=== PATIENT | male | born 1955 | race Caucasian/White ===

== ENCOUNTER → 2017-03-15 | Outpatient (CLI) | payer BC, OTHER ==
[~2017-03-15] MED LIST: ADVIL200 MG PO; B-12 5,000 MCG1 EACH; DICYCLOMINE HCL20 MG PO; FERROUS SULFAT325 M1 PO; GLIMEPIRIDE2 MG PO; HYDROCODON-ACE1 EAC9 PO; LORTAB 7.5-5001 EACH PO; LYRICA75 MG PO; METFORMIN HCL500 MG PO; MORPHINE SULFAT30 M2 PO; NORCO 7.5-3251 EACH PO; OMEPRAZOLE MAGN20 MG PO; OMEPRAZOLE20 M1 PO; OXYCODONE-ACET1 EAC3; SOMA350 MG PO
--- NOTE | 2017-03-15 16:42 | Diagnostic Imaging Report ---
PROCEDURE:X-RAY ABDOMEN - KUB COMPARISON:[facility], DX, ABDOMEN-1VIEW (KUB), 12/05/2016, 10:13. INDICATIONS:CALCULI OF KIDNEY FINDINGS: There is a non-obstructed bowel-gas pattern. Cholecystectomy clips. Levoscoliosis and degenerative changes of the lumbar spine. Fusion of L3-L5 with transpedicular screw system. Punctate calcific densities projected over the renal shadows bilaterally not significantly changed, albeit less conspicuous than on prior examination due to overlying bowel contents on today's exam. CONCLUSION: No significant change in bilateral punctate renal calculi. Abelardo Piper M.D. Dictated by: Abelardo Piper M.D. on 03/15/2017 at 16:51 Electronically approved by: Abelardo Piper M.D. on 03/15/2017 at 16:51
== END ==
LOC: RAD 13:28
PROVIDERS: ATTEND Urology
DX: N20.0 Calculus of kidney (principal)
CPT/HCPCS: 74000

== ENCOUNTER → 2017-06-05 | Outpatient (CLI) | payer BC, OTHER ==
--- NOTE | 2017-06-05 16:07 | Diagnostic Imaging Report ---
PROCEDURE:X-RAY ABDOMEN - KUB COMPARISON:03/15/2017 INDICATIONS:CALCULUS OF KIDNEY FINDINGS: One view of the abdomen (AP supine) No dilated loops of bowel or abnormal air-fluid levels patterns. Small calcifications projected over both kidneys, measuring up to 3 mm, overall unchanged. Cholecystectomy clips. Levoscoliosis and degenerative changes lumbar spine. Fusion of L3-L5 with transpedicular screws and disc spacers. CONCLUSION: 1. Nonobstructive bowel gas pattern. 2. Bilateral small renal calculi, unchanged since the prior study. Dictated by: Mauro iRchard M.D. on 06/05/2017 at 16:08 Electronically approved by: Mauro Richard M.D. on 06/05/2017 at 16:08
== END ==
LOC: RAD 15:13
PROVIDERS: ATTEND Urology
DX: N20.0 Calculus of kidney (principal)
CPT/HCPCS: 74018

== ENCOUNTER 2018-04-30 05:10 | Inpatient (IN) | payer BC, OTHER ==
[2018-04-26 13:20] LABS: BASOPHILS # (AUTO) 0.1 (0.0-0.1); BASOPHILS % 0.7 % (0.0-1.0); EOSINOPHILS # (AUTO) 0.2 (0.0-0.4); EOSINOPHILS % 2.5 % (0.0-6.0); HEMATOCRIT 38.7 % (38.2-49.6); HEMOGLOBIN 12.6 g/dL (14.0-18.0); LYMPHOCYTES # (AUTO) 1.7 (1.0-3.2); LYMPHOCYTES % 20.5 % (18.0-39.1); MEAN CORPUSCULAR HEMOGLOBIN 30.1 pg (28-32); MEAN CORPUSCULAR HGB CONC 32.6 g/dL (31-35); MEAN CORPUSCULAR VOLUME 92.4 fL (81-99); MONOCYTES # (AUTO) 0.6 (0.2-0.8); MONOCYTES % 7.6 % (4.4-11.3); NEUTROPHILS # (AUTO) 5.5 (2.1-6.9); NEUTROPHILS % 68.3 % (38.7-80.0); PLATELET COUNT 276 x10e3/uL (140-360); RED BLOOD COUNT 4.19 x10e6/uL (4.3-5.7)
[2018-04-26 13:36] LABS: ANION GAP 12.7 mmol/L (8-16); BLOOD UREA NITROGEN 8 mg/dL (7-26); BUN/CREATININE RATIO 7 (6-25); CALCIUM 9.5 mg/dL (8.4-10.2); CARBON DIOXIDE 19 mmol/L (22-29); CHLORIDE 111 mmol/L (98-107); CREATININE, SERUM 1.15 mg/dL (0.72-1.25); EST GLOMERULAR FILTRATION RATE > 60 ML/MIN (60-); GLUCOSE 120 mg/dL (74-118); POTASSIUM 3.7 mmol/L (3.5-5.1); SODIUM 139 mmol/L (136-145)
[2018-04-26 13:41] LABS: INR 0.92; PARTIAL THROMBOPLASTIN TIME 36.5 seconds (23.8-35.5); PROTHROMBIN TIME 12.9 seconds (11.9-14.5)
--- NOTE | 2018-04-26 13:54 | Diagnostic Imaging Report ---
Chest radiograph - 1 view COMPARISON: None. INDICATION: Pre admit. DISCUSSION: Exam is limited by patient obliquity and scoliosis. Lines/tubes: None. Lungs: The lungs are well inflated and clear. There is no evidence of pneumonia or pulmonary edema. Pleura: There is no pleural effusion or pneumothorax. Heart and mediastinum: Cardiomediastinal silhouette is unremarkable. Bones and soft tissues: No acute osseous abnormality. Severe levoconvex scoliosis at the thoracolumbar junction. There are partially seen lumbar spine fixation hardware. There are surgical clips which project over the upper abdomen. IMPRESSION: No acute radiographic abnormality. Signed by: Dr. Ava Leong MD on 04/26/2018 1:51 PM
[~2018-04-30] VITALS: Ht 167.6 cm; Wt 71.2 kg
[2018-04-30] VITALS (16 sets, daily range): BP systolic 87–127; BP diastolic 44–61
[~2018-04-30 05:10] MED LIST changes: +COQ-10100 MG; +CREON DR 24,001 EACH; +CRESTOR10 MG; +LISINOPRIL2.5 MG PO; +VITAMIN D250000 UNIT
--- OUTSIDE RECORDS SUMMARY | 2018-04-30 05:14 | XMS REPORT | Clinical Summary ---
Author Author [facility] Organization [facility] [facility] Address Unknown Phone Unavailable Care Team Providers Care Congressional Representative Name Role Phone System, Provider Not In MD PCP Unavailable Allergies No Known Allergies Medications End Date Status Medication Sig Dispensed Refills Start Date Active riFAMpin (RIFADIN) 300 MG Take 300 mg 0 capsule by mouth daily. Active tamsulosin (FLOMAX) 0.4 Take 0.4 mg 0 mg capsule by mouth daily. Active rosuvastatin (CRESTOR) 40 Take 40 mg by 0 MG tablet mouth daily. Active lisinopril Take 2.5 mg 0 (PRINIVIL,ZESTRIL) 2.5 mg by mouth tablet daily. Active linagliptin (TRADJENTA) 5 Take 5 mg by 0 mg tablet mouth daily. Active metFORMIN (GLUCOPHAGE) Take 1,000 mg 0 1,000 mg tablet by mouth 2 (two) times a day with meals. Active morPHINE (MS CONTIN) 100 Take 100 mg 0 MG 12 hr tablet by mouth 2 (two) times a day. Active ergocalciferol (VITAMIN Take 50,000 0 D2) 50,000 unit capsule Units by mouth once a week. 02/11/2018 Discontinued fenoprofen 400 mg capsule Take 400 mg 0 by mouth 2 (two) times a day. 02/11/2018 Discontinued HYDROcodone-acetaminophen Take 1 tablet 0 (NORCO) 10-325 mg per by mouth tablet every 6 (six) hours as needed for moderate pain. 02/11/2018 Discontinued glimepiride (AMARYL) 1 MG Take 1 mg by 0 tablet mouth daily before breakfast. 02/18/2018 levoFLOXacin (LEVAQUIN) Take 1 tablet 7 tablet 0 750 MG tablet (750 mg 8 total) by mouth daily for 7 days. Active Problems No known active problems Resolved Problems Problem Noted Date Resolved Date Altered mental status 02/09/2018 02/11/2018 Encounters Care Team Description Date Type Specialty Isaac Hernandez MD Li, MD Gordon Smith Tanseem Hamad Mohamed A, MD Altered mental status, unspecified altered mental status type (Primary Dx); Febrile illness; Pneumonia of right middle lobe due to infectious organism (HCC) 02/09/2018 [facility] General Internal Medicine - Encounter 02/11/2018 02/09/2018 Travel after 04/29/2017 Social History Date Tobacco Use Types Packs/Day Years Used Current Every Day Smoker Cigarettes 1.5 Smokeless Tobacco: Never Used Alcohol Use Drinks/Week oz/Week Comments No Alcohol Habits Answer Date Recorded How often do you have a drink containing alcohol? Never 02/09/2018 How many drinks containing alcohol do you have on Not asked a typical day when you are drinking? How often do you have six or more drinks on one Not asked occasion? Sex Assigned at Date Recorded Not on file Industry Job Start Date Occupation Not on file Not on file Not on file Travel End Travel History Travel Start No recent travel history available. Last Filed Vital Signs Time Taken Vital Sign Reading 02/11/2018 10:53 AM PUMPING STATION ENGINEER Blood Pressure 149/66 02/11/2018 10:53 AM PUMPING STATION ENGINEER Pulse 54 02/11/2018 10:53 AM PUMPING STATION ENGINEER Temperature 36.4 C (97.5 F) 02/11/2018 10:53 AM PUMPING STATION ENGINEER Respiratory Rate 20 02/11/2018 10:53 AM PUMPING STATION ENGINEER Oxygen Saturation 97% - Inhaled Oxygen - Concentration 02/11/2018 6:00 AM PUMPING STATION ENGINEER Weight 69.4 kg (153 lb) 02/09/2018 10:23 AM PUMPING STATION ENGINEER Height 172.7 cm (5' 8") 02/11/2018 6:00 AM PUMPING STATION ENGINEER Body Mass Index 23.26 Plan of Treatment Health Maintenance Due Date Last Done Comments COLON CANCER SCREENING 2004 SHINGLES VACCINES (#1) 2004 INFLUENZA VACCINE 09/19/2017 Procedures Comments Procedure Name Priority Date/Time Associated Diagnosis POTASSIUM LEVEL Routine 02/11/2018 11:18 AM PUMPING STATION ENGINEER POC GLUCOSE Routine 02/11/2018 10:53 AM PUMPING STATION ENGINEER POC GLUCOSE Routine 02/11/2018 6:41 AM PUMPING STATION ENGINEER HEMOGLOBIN A1C Routine 02/11/2018 5:06 AM PUMPING STATION ENGINEER ESTIMATED GFR Routine 02/11/2018 5:06 AM PUMPING STATION ENGINEER BASIC METABOLIC PANEL Routine 02/11/2018 5:06 AM PUMPING STATION ENGINEER HC COMPLETE BLD COUNT Routine 02/11/2018 W/AUTO DIFF 5:06 AM PUMPING STATION ENGINEER LEGIONELLA URINARY Routine 02/10/2018 ANTIGEN 11:52 PM PUMPING STATION ENGINEER STREPTOCOCCUS PNEUMONIAE Routine 02/10/2018 URINARY ANTIGEN 11:52 PM PUMPING STATION ENGINEER POC GLUCOSE Routine 02/10/2018 8:57 PM PUMPING STATION ENGINEER POC GLUCOSE Routine 02/10/2018 3:42 PM PUMPING STATION ENGINEER POC GLUCOSE Routine 02/10/2018 11:06 AM PUMPING STATION ENGINEER POC GLUCOSE Routine 02/10/2018 6:40 AM PUMPING STATION ENGINEER ESTIMATED GFR Routine 02/10/2018 5:38 AM PUMPING STATION ENGINEER HC COMPLETE BLD COUNT Routine 02/10/2018 W/AUTO DIFF 5:38 AM PUMPING STATION ENGINEER HEMOGLOBIN A1C Routine 02/10/2018 5:38 AM PUMPING STATION ENGINEER LIPID PANEL Routine 02/10/2018 5:38 AM PUMPING STATION ENGINEER BASIC METABOLIC PANEL Routine 02/10/2018 5:38 AM PUMPING STATION ENGINEER TROPONIN Routine 02/09/2018 10:02 PM PUMPING STATION ENGINEER ECG 12-LEAD Routine 02/09/2018 9:53 PM PUMPING STATION ENGINEER POC GLUCOSE Routine 02/09/2018 8:34 PM PUMPING STATION ENGINEER LACTIC ACID LEVEL, SEPSIS Timed 02/09/2018 - NOW AND REPEAT 2X EVERY 4:29 PM PUMPING STATION ENGINEER 3 HOURS POC GLUCOSE Routine 02/09/2018 4:28 PM PUMPING STATION ENGINEER POC GLUCOSE Routine 02/09/2018 1:46 PM PUMPING STATION ENGINEER LACTIC ACID LEVEL, SEPSIS Timed 02/09/2018 - NOW AND REPEAT 2X EVERY 1:30 PM PUMPING STATION ENGINEER 3 HOURS CONSULT TO SEPSIS Routine 02/09/2018 Pneumonia of right middle RESPONSE TEAM 1:07 PM PUMPING STATION ENGINEER lobe due to infectious organism (HCC) CT ANGIOGRAM PE CHEST STAT 02/09/2018 12:31 PM PUMPING STATION ENGINEER XR CHEST 1 VW PORTABLE STAT 02/09/2018 11:19 AM PUMPING STATION ENGINEER ECG 12-LEAD STAT 02/09/2018 11:09 AM PUMPING STATION ENGINEER RESPIRATORY PATHOGEN Routine 02/09/2018 PANEL 11:02 AM PUMPING STATION ENGINEER INFLUENZA ANTIGEN TEST, Routine 02/09/2018 REFLEX NEGATIVE TO RPP 11:02 AM PUMPING STATION ENGINEER BLOOD CULTURE, AEROBIC & Routine 02/09/2018 ANAEROBIC 10:53 AM PUMPING STATION ENGINEER URINE DRUGS OF ABUSE STAT 02/09/2018 SCREEN 10:50 AM PUMPING STATION ENGINEER URINALYSIS SCREEN AND STAT 02/09/2018 MICROSCOPY, WITH REFLEX 10:50 AM PUMPING STATION ENGINEER TO CULTURE URINE CULTURE STAT 02/09/2018 10:50 AM PUMPING STATION ENGINEER GRAM STAIN STAT 02/09/2018 10:50 AM PUMPING STATION ENGINEER TROPONIN STAT 02/09/2018 10:35 AM PUMPING STATION ENGINEER BETA HYDROXYBUTYRATE Routine 02/09/2018 10:35 AM PUMPING STATION ENGINEER VENOUS BLOOD GAS STAT 02/09/2018 10:35 AM PUMPING STATION ENGINEER LACTIC ACID LEVEL, SEPSIS STAT 02/09/2018 - NOW AND REPEAT 2X EVERY 10:35 AM PUMPING STATION ENGINEER 3 HOURS ESTIMATED GFR STAT 02/09/2018 10:35 AM PUMPING STATION ENGINEER COMPREHENSIVE METABOLIC STAT 02/09/2018 PANEL 10:35 AM PUMPING STATION ENGINEER PROTHROMBIN TIME WITH INR STAT 02/09/2018 10:35 AM PUMPING STATION ENGINEER PARTIAL THROMBOPLASTIN STAT 02/09/2018 TIME (PTT) 10:35 AM PUMPING STATION ENGINEER HC COMPLETE BLD COUNT STAT 02/09/2018 W/AUTO DIFF 10:35 AM PUMPING STATION ENGINEER BLOOD CULTURE, AEROBIC & Routine 02/09/2018 ANAEROBIC 10:35 AM PUMPING STATION ENGINEER ECG ED PRELIMINARY Routine 02/09/2018 INTERPRETATION 10:34 AM PUMPING STATION [address] CT STROKE BRAIN WO STAT 02/09/2018 CONTRAST 10:32 AM PUMPING STATION ENGINEER after 04/29/2017 Results * Potassium level (02/11/2018 11:18 AM PUMPING STATION ENGINEER) Potassium 3.8 3.5 - 5.0 mEq/L [facility] Specimen Plasma specimen Performing Organization Address City/[facility] Cent[facility]ode Phone Number [facility] [place] [address] PATHOLOGY AND GENOMIC MEDICINE [address] * POC glucose (02/11/2018 10:53 AM PUMPING STATION ENGINEER) Only the most recent of 9 results within the time period is included. POC glucose 172 (H) 65 - 100 mg/dL [facility] Comment: [facility] Meter ID: [id number] Scissors Grinder: Natali Zhou Performing Organization Address [facility] [place] [address] PATHOLOGY AND GENOMIC MEDICINE [address] * Estimated GFR (02/11/2018 5:06 AM PUMPING STATION ENGINEER) Only the most recent of 3 results within the time period is included. Estimated GFR >=90 mL/min/1.73 m2 [facility] Comment: [facility] CatergoryUnitsInte rpretation G1 >=90 Normal or high G2 60-89Mildly decreased [id number] Mildly to moderately decreased [id number] Moderately to severely decreased G4 15-29Severely decreased G5 <15Kidney failure The eGFR was calculated using the Chronic Kidney Disease Epidemiology Collaboration (CKD-EPI) equation. Interpretation is based on recommendations of the National Kidney Foundation-Kidney Disease Outcomes Quality Initiative (NKF-KDOQI) published in 2014. Specimen Plasma specimen Performing Organization Address City/State/Zipcode Phone Number [facility] [place] OF [address] [place] [address] PATHOLOGY AND GENOMIC MEDICINE [facility] [address] [place], [place] [id number] [place] [address] * CBC with platelet and differential (02/11/2018 5:06 AM PUMPING STATION ENGINEER) Only the most recent of 3 results within the time period is included. WBC 11.0 4.2 - 11.0 k/uL [facility] RBC 3.30 (L) 4.04 - 5.86 m/uL [facility] HGB 10.0 (L) 13.0 - 17.3 g/dL [facility] HCT 30.4 (L) 34.0 - 45.0 % [facility] MCV 92.1 80.0 - 98.0 fL [facility] MCH 30.3 27.0 - 34.0 pg [facility] MCHC 32.9 31.5 - 36.5 g/dL [facility] RDW - SD 52.5 (H) 37.0 - 51.0 fL [facility] MPV 10.3 7.4 - 10.4 fL [facility] Platelet count 208 150 - 400 k/uL [facility] Nucleated RBC 0.00 /100 WBC [facility] Neutrophils 78.4 (H) 36.0 - 66.0 % [facility] Lymphocytes 12.6 (L) 24.0 - 44.0 % [facility] Monocytes 5.3 0.0 - 6.0 % [facility] Eosinophils 2.5 0.0 - 6.0 % [facility] Basophils 0.5 0.0 - 1.2 % [facility] Immature granulocytes 0.7 0.0 - 1.0 % [facility] Specimen Blood Performing Organization Address City/[facility]/Zipcode Phone Number [facility] [address] [facility] [place]. [place] [phone] PATHOLOGY AND GENOMIC MEDICINE [address] * Hemoglobin A1c (02/11/2018 5:06 AM PUMPING STATION ENGINEER) Only the most recent of 2 results within the time period is included. Hemoglobin A1C 6.6 (H) 4.0 - 6.0 % [facility] Comment: [facility] Less than 6% - Goal of therapy for Type II Diabetes Less than 7%-Goal of therapy for Type I Diabetes Less than 8%-Accepta ble control for Type I or Type II Diabetes Greater than 8%-Unacceptabl e control; action indicated. (ADA94) Specimen Blood Performing Organization Address City/[facility] Centercode Phone Number [place] [phone] [place] [address] PATHOLOGY AND GENOMIC MEDICINE [address] * Basic metabolic panel (02/11/2018 5:06 AM PUMPING STATION ENGINEER) Only the most recent of 2 results within the time period is included. Sodium 144 135 - 150 mEq/L [facility] Potassium 3.1 (L) 3.5 - 5.0 mEq/L [facility] Chloride 110 98 - 112 mEq/L [facility] CO2 20 (L) 24 - 31 mmol/L [facility] Anion gap 14@ANIO 7 - 15 mEq/L [facility] BUN 14 7 - 18 mg/dL [facility] Creatinine 0.80 0.70 - 1.20 mg/dL [facility] Glucose 78 65 - 100 mg/dL [facility] Calcium 8.9 8.8 - 10.2 mg/dL [facility] Specimen Plasma specimen Performing Organization Address City/[facility]/Zipcode Phone Number [facility] [place] [address] [place] [phone] PATHOLOGY AND GENOMIC MEDICINE [facility] [address] * Streptococcus pneumoniae urinary antigen (02/10/2018 11:52 PM PUMPING STATION ENGINEER) Strep pneumo urinary Ag Negative for Streptococcus [facility] pneumoniae antigen. HOSPITAL Comment: Specimen Information Specimen Source: Urine Specimen Site: [place] Specimen Urine - [place] Performing Organization Address City/[facility] Centercode Phone Number [facility] [place] [address] PATHOLOGY AND GENOMIC MEDICINE [address] * Legionella urinary antigen (02/10/2018 11:52 PM PUMPING STATION ENGINEER) Legionella urinary Negative for Legionella [facility] antigen serogroup 1 antigen. HOSPITAL Comment: Specimen Information Specimen Source: Urine Specimen Site: [place] Specimen Urine - [place] Performing Organization Address [facility] Centercode Phone Number [facility] DEPARTMENT OF [address] [place] [address] PATHOLOGY AND GENOMIC MEDICINE [address] * Lipid panel (02/10/2018 5:38 AM PUMPING STATION ENGINEER) Cholesterol 70 0 - 199 mg/dL [facility] Triglycerides 67 0 - 149 mg/dL [facility] HDL cholesterol 51 40 - 9,999 mg/dL [facility] LDL cholesterol 15Comment: Result obtained by 0 - 99 mg/dL [facility] direct LDL measurement [facility] Specimen Plasma specimen Performing Organization Address City/[facility]/Zipcode Phone Number [facility] OF [address] [place] [phone] PATHOLOGY AND GENOMIC MEDICINE [facility] [address] * Troponin (02/09/2018 10:02 PM PUMPING STATION ENGINEER) Only the most recent of 2 results within the time period is included. Troponin <0.30 0.00 - 0.30 ng/mL [facility] Comment: [facility] 0.11 - 1.49 ng/mlMay indicate increased risk of acute coronary syndrome. >=1.5 ng/ml Consistent with acute myocardial infarction. The diagnostic value of a single normal or non-diagnostic result is questionable.Serial samples at 2-6 hour intervals are required to rule out acute myocardial injury. Specimen Plasma specimen Performing Organization Address [facility] Centercode Phone Number [facility] [place] [place] [address] [place] [phone] PATHOLOGY AND GENOMIC MEDICINE [facility] [address] * ECG 12 lead (02/09/2018 9:53 PM PUMPING STATION ENGINEER) Only the most recent of 2 results within the time period is included. Ventricular rate 55 [facility] Atrial rate 55 [facility] IA interval 204 [facility] QRSD interval 94 [facility] QT interval 430 [facility] QTC interval 411 [facility] P axis 1 39 [facility] QRS axis 1 80 [facility] T wave axis 66 [facility] EKG impression Sinus bradycardia-Otherwise [facility] normal ECG-In automated comparison with ECG of 09-FEB-2018 11:09,-Vent. rate has decreased BY43 BPM-Incomplete right bundle branch block is no longer present- Narrative Performed At Performing Organization Address [facility] Phone Number [facility] [address] [place] [address] * Lactic acid level, SEPSIS - Now and repeat 2x every 3 hours (02/09/2018 4:29 PM PUMPING STATION ENGINEER) Only the most recent of 3 results within the time period is included. Lactic acid 1.1 0.5 - 2.2 mmol/L [facility] Specimen Blood Performing Organization Address City/[facility]/Zipcode Phone Number [facility] [place] [address] [place] [address] PATHOLOGY AND GENOMIC MEDICINE [facility] [address] * Sepsis Clinical Assessment (02/09/2018 1:07 PM PUMPING STATION ENGINEER) Narrative Performed At Rene Karimi NP 02/09/20182:27 PM Patient is a 62 y/o male with PMH of DM and chronic back pain, presented to the ED with AMS and fever (Tmax 103). He was at work and " passed out." UAand flu negative. CTA of the chest showed scattered area of pneumonitis in the right lung field. LA 2.1. BC x 2 sent. Received a total of 2,088 ml of fluids (30 ml/kg). Rocephin and Azithromycin ordered by ER physician. 1426: Repeat LA down to 0.9. Sepsis Clinical Assessment Performed by: Rene Karimi NP Authorized by: Rene Karimi NP Sepsis Clinical Assessment General Assessment Information Current sepsis score:2 On comfort care?: No If score does not worsen, snooze alerts until:02/10/2018 01:12 PUMPING STATION ENGINEER SIRS Criteria Altered mental status due to acute condition Heart rate > 90 bpm due to acute condition Respirations > 20/min due to acute condition Organ Dysfunction Lactate > 2.0 mmol/L due to acute condition Sepsis Assessment Clinical suspicion of infection? Yes Time of suspicion of infection:02/09/2018 1:12 PM Clinical suspicion of sepsis?: Yes Sepsis staging:Severe sepsis Severe Sepsis T0:02/09/2018 1:12 PM Sepsis protocol started?Yes Where did the protocol start?:ED Started Suspected Type/Source of Infection Suspected Type of Infection: Bacterial Suspected Source of Infection: Pneumonia Other Acute Diagnoses Other Acute Diagnosis: Pneumonia Focus Exam Sepsis focus exam performed at 02/09/2018 2:27 PM Cardiopulmonary Exam Heart: Regular rate & rhythm Left Lung: Clear Right Lung: Decreased Capillary Refill Capillary refill rate: Brisk, < 3 s Peripheral Pulses Left dorsalis pedis:Normal Right dorsalis pedis:Normal Left posterial tibial: Normal Right posterial tibial:Normal Left radial:Normal Right radial:Normal Skin Exam Skin exam: Skin color normal Sepsis Related Vitals Heart rate: 82 Temperature: (!) 100.4 F Respiratory rate: 17 Blood pressure: 112/50 Altered mental status: WBC (k/uL) Date Value 02/09/2018 8.5 Weight-Based Fluid Bolus Calculation The recommended weight-based bolus volume: 2,088 mL (dosing weight) Please refer to the MAR for actual med/fluid administrations. * CT Angiogram Pe Chest (02/09/2018 12:31 PM PUMPING STATION ENGINEER) Narrative Performed At EXAMINATION: [facility] CT ANGIOGRAM PE CHEST CLINICAL HISTORY: altered mental statusmass to lung TECHNIQUE:CT angiographic images of the chest were obtained during intravenous administration of iodinated contrast. Computerized reformatted images and 3-D MIP images were also obtained and archived (CT pulmonary embolus protocol). CT scans are performed using radiation dose reduction techniques. Technical factors are evaluated and adjusted to ensure appropriate moderation of exposure. Automated dose management technology is applied to adjust radiation exposure while achieving a diagnostic quality image COMPARISON: None. FINDINGS: Scans through the area of the right upper lobe demonstrate multiple areas of peripheral infiltration and septal thickening suggesting inflammatory process including focal pneumonia.This is most marked in the right middle lobe where there is a broad area of consolidation and air bronchogram.There is an atelectatic change in the posterior basal segment of the left lower lobe. There are left lung field does not demonstrate scattered inflammatory changes is seen on the right but does have posterior basilar atelectasis. There is no definite mediastinal mass or significant adenopathy. Thoracic aorta and pulmonary artery are of normal caliber.There is some mild adenopathy identified to both in the subcarinal region and in the inferior right hilum in the area of inflammatory change there is moderate opacification of the pulmonary artery with contrast.There is no definite pulmonary embolus identified. Scans to the lower chest demonstrate bilateral nephrolithiasis without definite obstruction. IMPRESSION: Scattered areas of pneumonitis in the right lung field. No definite pulmonary embolus. Renal stones [facility]-[id number] Procedure Note Interface, Radiology Results [facility] - 02/09/2018 12:40 PM PUMPING STATION ENGINEER EXAMINATION: CT ANGIOGRAM PE CHEST CLINICAL HISTORY: altered mental status mass to lung TECHNIQUE: CT angiographic images of the chest were obtained during intravenous administration of iodinated contrast. Computerized reformatted images and 3-D MIP images were also obtained and archived (CT pulmonary embolus protocol). CT scans are performed using radiation dose reduction techniques. Technical factors are evaluated and adjusted to ensure appropriate moderation of exposure. Automated dose management technology is applied to adjust radiation exposure while achieving a diagnostic quality image COMPARISON: None. FINDINGS: Scans through the area of the right upper lobe demonstrate multiple areas of peripheral infiltration and septal thickening suggesting inflammatory process including focal pneumonia. This is most marked in the right middle lobe where there is a broad area of consolidation and air bronchogram. There is an atelectatic change in the posterior basal segment of the left lower lobe. There are left lung field does not demonstrate scattered inflammatory changes is seen on the right but does have posterior basilar atelectasis. There is no definite mediastinal mass or significant adenopathy. Thoracic aorta and pulmonary artery are of normal caliber. There is some mild adenopathy identified to both in the subcarinal region and in the inferior right hilum in the area of inflammatory change there is moderate opacification of the pulmonary artery with contrast. There is no definite pulmonary embolus identified. Scans to the lower chest demonstrate bilateral nephrolithiasis without definite obstruction. IMPRESSION: Scattered areas of pneumonitis in the right lung field. No definite pulmonary embolus. Renal stones [facility]-[id number] Performing Organization Address [facility] Phone Number [employer] [address] [place] [address] * XR Chest 1 Vw Portable (02/09/2018 11:19 AM PUMPING STATION ENGINEER) Narrative Performed At EXAMINATION:XR CHEST 1 VW PORTABLE [facility] CLINICAL HISTORY:feveraltered mental status COMPARISON:None. IMPRESSION: There is a 3.2 cm ill-defined mass in the right lower lobe. Recommend chest CT with IV contrast for further evaluation. Left lung is clear. No pleural fluid or pneumothorax is seen. The heart size is normal. There is no acute skeletal finding. [id number] Procedure Note Interface, Radiology Results Incoming - 02/09/2018 11:26 AM PUMPING STATION ENGINEER EXAMINATION: XR CHEST 1 VW PORTABLE CLINICAL HISTORY: fever altered mental status COMPARISON: None. IMPRESSION: There is a 3.2 cm ill-defined mass in the right lower lobe. Recommend chest CT with IV contrast for further evaluation. Left lung is clear. No pleural fluid or pneumothorax is seen. The heart size is normal. There is no acute skeletal finding. [id number] Performing Organization Address [facility]erc[facility] Phone Number [facility]ITALT[facility] [employer] [facility] [address] [place] [address] * Respiratory pathogen panel (02/09/2018 11:02 AM PUMPING STATION ENGINEER) Respiratory pathogen Negative for all pathogens [facility] panel tested: HOSPITAL Negative for Adenovirus Negative for Coronavirus HKU1 Negative for Coronavirus NL63 Negative for Coronavirus 229E Negative for Coronavirus OC43 Negative for Human Metapneumovirus Negative for Rhinovirus/Enterovirus Negative for Influenza A Negative for Influenza A/H1 Negative for Influenza A/H3 Negative for Influenza A/H1-2009 Negative for Influenza B Negative for Parainfluenza Virus 1 Negative for Parainfluenza Virus 2 Negative for Parainfluenza Virus 3 Negative for Parainfluenza Virus 4 Negative for Respiratory Syncytial Virus Negative for Bordetella pertussis Negative for Chlamydophila pneumoniae Negative for Mycoplasma pneumoniae This real-time PCR assay detects the presence of nucleic acids (RNA or DNA) for the respiratory pathogens listed. A result of "Not-detected" does not exclude the possibility of the presence of one or more pathogens at concentrations less than the detectable limits of the assay. Comment: Specimen Information Specimen Source: Nasopharyngeal Specimen Site: Right Specimen Nasopharyngeal - Right Performing Organization Address City/[facility]/Zipcode Phone Number [facility] [place] [address] PATHOLOGY AND [facility] MEDICINE [address] * Influenza antigen test, reflex negative to RPP (02/09/2018 11:02 AM PUMPING STATION ENGINEER) Influenza antigen Negative for Influenza A/B [facility] Comment: Specimen Information Specimen Source: Nasopharyngeal Specimen Site: Right Specimen Nasopharyngeal - Right Performing Organization Address City/State/Zipcode Phone Number [facility] [address] [place] [address] PATHOLOGY AND GENOMIC [address] * Blood culture, aerobic & anaerobic (02/09/2018 10:53 AM PUMPING STATION ENGINEER) Only the most recent of 2 results within the time period is included. Blood culture isolate No growth after 5 days of [facility] incubation. HOSPITAL Comment: Specimen Information Specimen Source: Blood Specimen Site: right ac Specimen Blood Performing Organization Address City/[facility]/Zipcode Phone Number [facility] [place] [address] PATHOLOGY AND GENOMIC MEDICINE [address] * Urinalysis screen and microscopy, with reflex to culture (02/09/2018 10:50 AM PUMPING STATION ENGINEER) Specimen site Catheterized [facility] Color, UA Yellow [facility] Appearance, UA Clear [facility] Specific gravity, UA 1.013 1.001 - 1.035 [facility] pH, UA 5.0 5.0 - 8.5 [facility] Protein, UA 1+ (A) Negative [facility] Glucose, UA 1+ (A) Negative [facility] Ketones, UA Negative Negative [facility] Bilirubin, UA Negative Negative [facility] Blood, UA Small (A) Negative [facility] Nitrite, UA Negative Negative [facility] Urobilinogen, UA Negative <2.0 [facility] Leukocyte esterase, UA Negative Negative [facility] Epithelial cells, UA Few /HPF [facility] WBC, UA 3 (H) 0 - 1 /HPF [facility] RBC, UA <1 0 - 5 /HPF [facility] Bacteria, UA Trace None seen [facility] Yeast, UA None seen [facility] Yeast with pseudohyphae, None seen [facility] Specimen Urine Performing Organization Address City/[facility] Phone Number [facility] OF [address] [facility] [place] [address] PATHOLOGY AND GENOMIC MEDICINE [address] * Urine drugs of abuse screen (02/09/2018 10:50 AM PUMPING STATION ENGINEER) Amphetamine screen, urine Negative [facility] Barbiturate screen, urine Negative [facility] Benzodiazepine screen, Negative [facility] urine [facility] Cannabinoid screen, urine Negative [facility] Cocaine screen, urine Negative [facility] Methadone metabolite Negative [facility] (EDDP), urine [facility] Opiates screen, urine Positive (A) [facility] Phencyclidine screen, Negative [facility] urine [facility] Specimen Urine Performing Organization Address City/[facility] Phone Number [facility] OF [address] [place] [address] PATHOLOGY AND GENOMIC MEDICINE [facility] [address] * Gram stain (02/09/2018 10:50 AM PUMPING STATION ENGINEER) Gram stain result No WBC's or organisms seen. ARMOND VEGA Comment: HOSPITAL Specimen Information Specimen Source: Urine Specimen Site: Catheterized Specimen Urine - Catheterized Performing Organization Address City/[facility] Phone Number [facility] DEPARTMENT OF [address] [place] [address] PATHOLOGY AND GENOMIC MEDICINE [address] * Urine culture (02/09/2018 10:50 AM PUMPING STATION ENGINEER) Urine culture isolate growth after 24 hours ARMOND VEGA Comment: HOSPITAL Specimen Information Specimen Source: Urine Specimen Site: Catheterized Specimen Urine - Catheterized Performing Organization Address [facility] Phone Number [facility] DEPARTMENT OF [address] [place] [address] PATHOLOGY AND GENOMIC MEDICINE [address] * Beta hydroxybutyrate (02/09/2018 10:35 AM PUMPING STATION ENGINEER) Beta hydroxybutyrate 0.08 0.02 - 0.27 mmol/L [facility] Specimen Blood Performing Organization Address [facility] Cent[facility]ode Phone Number [facility] [address] [facility] [place] [address] PATHOLOGY AND GENOMIC MEDICINE [address] * Partial thromboplastin time, activated (02/09/2018 10:35 AM PUMPING STATION ENGINEER) PTT 36.3 (H) 23.0 - 36.0 sec [facility] Comment: [facility] PTT therapeutic range for unfractionated heparin is 61.0-112.0 seconds which corresponds to Anti-Xa 0.3-0.7 U/ml. Note:Change in Panic Value The PTT Panic Value is changing from 110 sec. to 100 sec. due to new instrumentation and reagents. Correlation studies have been performed to validate this result. Specimen Blood Performing Organization Address [facility] Centercode Phone Number [facility] [address] [facility] [place] [id number] PATHOLOGY AND GENOMIC MEDICINE [address] * Prothrombin time with INR (02/09/2018 10:35 AM PUMPING STATION ENGINEER) Prothrombin time 13.5 11.5 - 14.5 sec [facility] INR 1.06 [facility] Comment: [facility] For patients on anticoagulant therapy, reference ranges below: Indication: INR Value Treatment of Venous Thrombosis, 2.0-3.0 pulmonary emboli, or prophylaxis of a venous thrombosis, or systemic emboli. High dose, high risk patients 3.0-4.5 with mechanical valves. NOTE:INR values over 3.0 are sometimes associated with gastrointestinal hemorrhage, especially values over 4.0. Specimen Blood Performing Organization Address City/State/Zipcode Phone Number [facility] [address] [facility] [place] [address] PATHOLOGY AND [facility] MEDICINE [address] * Venous blood gas (02/09/2018 10:35 AM PUMPING STATION ENGINEER) Scissors Grinder TD [facility] Collection site LAC [facility] pH, venous 7.337 7.320 - 7.420 units [facility] pCO2, venous 42.1 (L) 45.0 - 51.0 mmHg [facility] pO2, venous 23.5 (L) 25.0 - 40.0 mmHg [facility] O2 saturation, venous 42.1 40.0 - 70.0 % [facility] Bicarbonate 22.5 21.0 - 28.0 mEq/L [facility] O2 content 7.2 VOL% [facility] FiO2, inspired O2% 21.0 % [facility] Carboxyhemoglobin 2.5 (H) 0.0 - 1.4 % [facility] Comment: [facility] Reference Ranges: Carboxyhemoglobin Non smoker: 0.0 - 2.0% Smoker: 2.1 - 5.0% Heavy smoker: 5.1 - 9% Methemoglobin 1.5 (H) 0.0 - 1.0 % [facility] Hemoglobin, blood gas 12.7 (L) 14.0 - 18.0 g/dL [facility] Specimen Blood Performing Organization Address City/State/Zipcode Phone Number [facility] [address] [place] [address] PATHOLOGY AND GENOMIC MEDICINE [facility] [address] [place], [place] [id number] [place] [address] * Comprehensive metabolic panel (02/09/2018 10:35 AM PUMPING STATION ENGINEER) Sodium 138 135 - 150 mEq/L [facility] Potassium 3.1 (L) 3.5 - 5.0 mEq/L [facility] Chloride 104 98 - 112 mEq/L [facility] CO2 20 (L) 24 - 31 mmol/L [facility] Anion gap 14@ANIO 7 - 15 mEq/L [facility] BUN 10 7 - 18 mg/dL [facility] Creatinine 1.00 0.70 - 1.20 mg/dL [facility] Glucose 221 (H) 65 - 100 mg/dL [facility] Calcium 9.2 8.8 - 10.2 mg/dL [facility] Protein 6.8 6.3 - 8.3 g/dL [facility] Albumin 3.0 (L) 3.5 - 5.0 g/dL [facility] A/G ratio 0.8 0.7 - 3.8 [facility] Alkaline phosphatase 118 0 - 129 U/L [facility] AST 23 10 - 50 U/L [facility] ALT 26 5 - 50 U/L [facility] Total bilirubin 0.5 0.2 - 1.2 mg/dL [facility] Specimen Plasma specimen Performing Organization Address City/[facility]/Zipcode Phone Number [facility] [address] [place] [address] PATHOLOGY AND GENOMIC MEDICINE [facility] [address] [place], [place] [id number] [place] [address] * ECG ED Preliminary Interpretation - Not an Order (02/09/2018 10:34 AM PUMPING STATION ENGINEER) Narrative Performed At Isaac Hernandez MD 02/09/20181:43 PM ECG ED Preliminary Interpretation - Not an Order Performed by: Isaac Hernandez MD Authorized by: Isaac Hernandez MD ECG reviewed by ED Physician in the absence of a residential insurance inspector: yes Previous ECG: Previous ECG:Unavailable Interpretation: Interpretation: normal Rate: ECG rate:98 ECG rate assessment: normal Rhythm: Rhythm: sinus rhythm Ectopy: Ectopy: none QRS: QRS axis:Normal QRS intervals:Normal Conduction: Conduction: abnormal Abnormal conduction: incomplete RBBB ST segments: ST segments:Normal T waves: T waves: normal * CT Stroke Brain Wo Contrast (02/09/2018 10:32 AM PUMPING STATION ENGINEER) Narrative Performed At EXAMINATION:CT STROKE BRAIN WO CONTRAST RADIANT CT IMAGING WAS PERFORMED WITH ITERATIVE RECONSTRUCTION TECHNIQUE AND/OR AUTOMATED EXPOSURE CONTROL TO REDUCE RADIATION DOSE. CLINICAL HISTORY:STROKE COMPARISON:None. FINDINGS: 1. There is no acute intracranial abnormality. Specifically there is no intracranial hemorrhage, mass effect or acute infarction. 2.There are minimal if any nonspecific cerebral white matter microvascular changes. There is moderate cerebral cortical volume loss and mild cerebellar volume loss. 3.Atherosclerotic calcifications noted in the distal internal carotid arteries. 4.There is a moderate mucosal thickening/mucus in the maxillary sinus on the right and to a slightly lesser degree in the ethmoid and left maxillary sinuses. 5 .There is mild bilateral proptosis greater on the right without orbital mass. IMPRESSION: No acute abnormality demonstrated. ISAAC HERNANDEZ was informed of these findings on 02/09/2018 10:34 AM and acknowledged understanding of the findings. [facility]-[id number] Procedure Note [facility], Radiology Results Incoming - 02/09/2018 10:42 AM PUMPING STATION ENGINEER EXAMINATION: CT STROKE BRAIN WO CONTRAST CT IMAGING WAS PERFORMED WITH ITERATIVE RECONSTRUCTION TECHNIQUE AND/OR AUTOMATED EXPOSURE CONTROL TO REDUCE RADIATION DOSE. CLINICAL HISTORY: STROKE COMPARISON: None. FINDINGS: 1. There is no acute intracranial abnormality. Specifically there is no intracranial hemorrhage, mass effect or acute infarction. 2. There are minimal if any nonspecific cerebral white matter microvascular changes. There is moderate cerebral cortical volume loss and mild cerebellar volume loss. 3. Atherosclerotic calcifications noted in the distal internal carotid arteries. 4. There is a moderate mucosal thickening/mucus in the maxillary sinus on the right and to a slightly lesser degree in the ethmoid and left maxillary sinuses. 5. There is mild bilateral proptosis greater on the right without orbital mass. IMPRESSION: No acute abnormality demonstrated. ISAAC HERNANDEZ was informed of these findings on 02/09/2018 10:34 AM and acknowledged understanding of the findings. [facility]-[id number] Performing Organization Address City/State/Zipcode Phone Number [facility] [address] [place] [address] after 04/29/2017 Insurance Payer Benefit Subscriber ID Type Phone Address Plan / Group BCBS BCBS xxxxxxxxxxxx PPO CHOICE PPO/FEDERA L EMPL PPO BCBS ANTHEM xxxxxxxxxxxx PPO [place] [employer] ([employer]) [place] [address] Advance Directives Patient has advance care planning documents on file. For more information, omero sanches contact: Armond Vega [address] [place] [address]
--- OUTSIDE RECORDS SUMMARY | 2018-04-30 05:14 | XMS REPORT ---
Author Author [facility] Address Unknown Phone Unavailable Care Team Providers Care Supervisor Cold Rolling Name Role Phone MAXIMINO FOLEY Unavailable Unavailable CHERELLE FINK Unavailable Unavailable Payers Payer Name Policy Type Policy Number Effective Date Expiration Date Problems This patient has no known problems. Allergies, Adverse Reactions, Alerts Allergy Name Allergy Type Status Severity Reaction(s) Onset Date Inactive Date Treating Clinician Comments No Known Allergies DA Active U 2011-07-18 00:00:00 Medications This patient has no known medications. Results Test Description Test Time Test Comments Text Results Atomic Results Result Comments CHEST 2 VIEWS 2018-04-26 13:48:00 [place] [address] Patient Name: RADHA BROWN MR #: [id number] : 1955 Age/Sex: 62/M Req #: [id number] Adm Physician: Ordered by: MAXIMINO FOLEY MD Report #: [id number] Location: OR Room/Bed: Procedure: [id number] DX/CHEST 2 VIEWS Exam Date: 04/26/18 Exam Time: 1320 REPORT STATUS: Signed Chest radiograph - 1 view COMPARISON: None. INDICAT ION: Pre admit. DISCUSSION: Exam is limited by patient obliquity and scoliosis. Lines/tubes: None. Lungs: The lungs are well inflated and clear. There is no evidence of pneumonia or pulmonary edema. Pleura: There is no pleural effusion or pneumothorax. Heart and mediastinum: Cardiomediastinal silhouette is unremarkable. Bones and soft tissues: No acute osseous abnormality. Severe levoconvex scoliosis at the thoracolumbar junction. There are partially seen lumbar spine fixation hardware. There are surgical clips which project over the upper abdomen. IMPRESSION: No acute radiographic abnormality. Signed by: Dr. Bentley Christie MD on 04/26/2018 1:51 PM Dictated By: BENTLEY CHRISTIE MD 1351 Transcribed By: ULISES on 04/26/18 1351 COPY TO: MAXIMINO FOLEY MD GLUBED 2018-04-09 13:09:00 GLUBED (test code=GLUBED) 81 mg/dL 74-106 Performed by certified vehicle operator at [facility] PROTHROMBIN [id number] 17:41:00* Test Item Value Reference Range Comments PROTHROMBIN TIME PATIENT (test code=PTP) 11.5 seconds 9.0-14.0 INTERNATIONAL NORMAL RATIO (test code=INR) 1.0 0.8-1.2 The therapeutic range for oral anticoagulant therapy formost indications is an international normalized ratio (INR)of between 2.0 and 3.0. The recommended therapeutic INRrange for various clinical situations is listed below: Clinical Situation INR range Pulmonary e mbolism treatment (2.0-3.0)Venous thrombosis treatmentVenous thrombosis prophylaxis (high risk surgery)Prevention of systemic embolism from: Acute myocardial infarction Valvular heart disease Atrial fibrillation Mechanical prosthetic heart valves (2.5-3.5) THROMBOPLASTIN TIME [id number] 17:41:00* Test Item Value Reference Range Comments THROMBOPLASTIN TIME PARTIAL (test code=PTT) 32.4 seconds 25.0-36.5 BASIC METABOLIC [id number] 17:36:00* Test Item Value Reference Range Comments SODIUM (test code=NA) 140 mmol/L 136-145 POTASSIUM (test code=K) 3.7 mmol/L 3.5-5.1 CHLORIDE (test code=CL) 109.0 mmol/L 98-107 CARBON DIOXIDE (test code=CO2) 23.0 mmol/L 21-32 ANION GAP (test code=GAP) 11.7 10-20 GLUCOSE (test code=GLU) 123 mg/dL 74-106 BLOOD UREA NITROGEN (test code=BUN) 17 mg/dL 7-18 GLOMERULAR FILTRATION RATE (test code=GFR) > 60 mL/min >=60 Estimated GFR by using Modified MDRD formula.Chronic kidney disease is defined as either kidney damageor GFR <60 mL/min/1.73 m2 for >3 months. CREATININE (test code=CREAT) 1.20 mg/dL 0.7-1.3 BUN/CREATININE RATIO (test code=BUN/CREA) 14.5 10-20 CALCIUM (test code=CA) 8.9 mg/dL 8.5-10.1 - XR CHEST 2 [id number] 17:17:00 FAX: Luis F Edwards MD [phone] [place]: O St: PRE FAX: Kd Sierra MD [phone] Name: RADHA BROWN [facility] : 1955 Age/S: 62/M [address] [facility] Unit #: [id number] Loc: [place] [address] Phys: Kd Vidal MD Acct: [id number] Dis Date: Status: PRE SDC PHONE #: [phone] Exam Date: 04/05/2018 1712 FAX #: [phone] Reason: PRE-OP EXAMS: CPT CODE: [id number] XR CHEST 2 V [id number] REASON FOR EXAM: PRE-OP Exam Order Date: 04/05/2018 4:19 PM Ordering David: Kd Vidal MD PROCEDURE: - XR CHEST 2 V COMPARISON: FINDINGS: PA and lateral views of the chest show clear lungs. No evidence of consolidation. No evidence of effusion. The heart size is within normal limits. Pulmonary vasculatures are unremarkable. The osseous structures are grossly intact. IMPRESSION: No active disease. at 1221 Reported and signed by: Manolo Lion M.D. CC: Luis F Albert MD; Kd Vidal MD Technologist: Zoey Powell RT(R) Trnscrd Date/Time/By: 04/05/2018 (9977) : By: MoiseVTL Orig Print D/T: S: 04/05/2018 (9901) PAGE 1 Signed Report CBC W/AUTO [id number] 17:00:00* Test Item Value Reference Range Comments WHITE BLOOD CELL (test code=WBC) 6.3 K/mm3 4.5-12.5 RED BLOOD CELL (test code=RBC) 3.72 mill/mm3 4.0-5.8 HEMOGLOBIN (test code=HGB) 11.0 gram/dL 13.0-17.5 HEMATOCRIT (test code=HCT) 33.8 % 42.0-52.0 MEAN CELL VOLUME (test code=MCV) 90.9 fL 80-98 MEAN CELL HGB (test code=MCH) 29.6 picogram 27.0-33.0 MEAN CELL HGB CONCETRATION (test code=MCHC) 32.5 gram/dL 33.0-36.0 RED CELL DISTRIBUTION WIDTH (test code=RDW) 14.6 % 11.6-16.2 RED CELL DISTRIBUTION WIDTH SD (test code=RDW-SD) 48.3 fL 37.0-51.0 PLATELET COUNT (test code=PLT) 213 K/mm3 150-450 MEAN PLATELET VOLUME (test code=MPV) 9.8 fL 6.7-11.0 NEUTROPHIL % (test code=NT%) 63.1 % 39.0-69.0 IMMATURE GRANULOCYTE % (test code=IG%) 0.3 % 0.0-5.0 LYMPHOCYTE % (test code=LY%) 24.2 % 25.0-55.0 MONOCYTE % (test code=MO%) 8.1 % 0.0-10.0 EOSINOPHIL % (test code=EO%) 3.3 % 0.0-5.0 BASOPHIL % (test code=BA%) 1.0 % 0.0-1.0 NUCLEATED RBC % (test code=NRBC%) 0.0 % 0-0 NEUTROPHIL # (test code=NT#) 3.98 K/mm3 1.8-7.7 IMMATURE GRANULOCYTE # (test code=IG#) 0.02 x10 3/uL 0-0.03 LYMPHOCYTE # (test code=LY#) 1.53 K/mm3 1.0-5.0 MONOCYTE # (test code=MO#) 0.51 K/mm3 0-0.8 EOSINOPHIL # (test code=EO#) 0.21 K/mm3 0.0-0.5 BASOPHIL # (test code=BA#) 0.06 K/mm3 0.0-0.2 NUCLEATED RBC # (test code=NRBC#) 0.00 K/mm3 0.0-0.1 MANUAL DIFF REQUIRED (test code=MDIFF) NO ABDOMEN-1VIEW (KUB) [place] [address] Patient Name: RADHA BROWN MR #: [id number] : 1955 Age/Sex: 61/M Req #: [id number] Adm Physician: Ordered by: CHERELLE FINK MD Report #: [id number] Location: [facility] Room/Bed: Procedure: [id number] DX/ABDOMEN-1VIEW (KUB) Exam Date: 06/05/17 Exam Time: 1626 REPORT STATUS: S igned PROCEDURE: X-RAY ABDOMEN - KUB COMPARISON: 03/15/2017 IN DICATIONS: CALCULUS OF KIDNEY FINDINGS: One view of the abdomen (AP supine) No dilated loops of bowel or abnormal air-fluid levels patterns. Small calcifications projected over both kidneys, measuring up to 3 mm, overall unchanged. Cholecystectomy clips. Levoscoliosis and degenerative changes lumbar spine. Fusion of L3-L5 with transpedicular screws and disc s pacers. CONCLUSION: 1. Nonobstructive bowel gas pattern. 2. Bilateral small renal calculi, unchanged since the prior study. Dictat ed by: Jorje Richard M.D. on 06/05/2017 at 16:08 Electronically approve d by: Jorje Richard M.D. on 06/05/2017 at 16:08 Dictated By: JORJE RICHARD MD 160 Transcribed By: REUBEN on 06/05/17 1608 COPY TO: CHERELLE FINK MD ABDOMEN-1VIEW (KUB) [place] [address] Patient Name: RADHA BROWN MR #: [id number] : 1955 Age/Sex: 61/M Req #: [id number] Adm Physician: Ordered by: CHERELLE FINK MD Report #: [id number] Location: [facility] Room/Bed: Procedure: [id number] DX/ABDOMEN-1VIEW (KUB) Exam Date: 03/15/17 Exam Time: 1345 REPORT STATUS: S igned PROCEDURE: X-RAY ABDOMEN - KUB COMPARISON: Patients Medical C enter, DX, ABDOMEN-1VIEW (KUB), 12/05/2016, 10:13. INDICATIONS: CALCU LI OF KIDNEY FINDINGS: There is a non-obstructed bowel-gas pattern. C holecystectomy clips. Levoscoliosis and degenerative changes of the lumbar sp ine. Fusion of L3-L5 with transpedicular screw system. Punctate calcific dens ities projected over the renal shadows bilaterally not significantly michelle ged, albeit less conspicuous than on prior examination due to overlying bowel contents on today's exam. CONCLUSION: No significant change in bilat eral punctate renal calculi. Abelardo Yoon M.D. Dictated by: Abelardo Yoon M.D. on 03/15/2017 at 16:51 Electronically appr brian by: Abelardo Yoon M.D. on 03/15/2017 at 16:51 Dic tated By: YUSUF YOON MD, MD 50 COPY TO: CHERELLE FINK MD ABDOMEN-1VIEW (KUB) [place] [address] Patient Name: RADHA BROWN MR #: [id number] : 1955 Age/Sex: 61/M Req #: [id number] Adm Physician: Ordered by: CHERELLE FINK MD Report #: [id number] Location: [facility] Room/Bed: Procedure: [id number] DX/ABDOMEN-1VIEW (KUB) Exam Date: 12/05/16 Exam Time: 1013 REPORT STATUS: S igned PROCEDURE: X-RAY ABDOMEN - KUB COMPARISON: KUB 06/19/2016. INDICATIONS: CALCULUS OF THE KIDNEY FINDINGS: Stable at 2-3 mm calcifications in the superior and inferior poles of bilateral kidneys as w ell as interpolar region of the right kidney. No calcifications overlying the ureters or urinary bladder. There are no dilated loops of bowel to suggest obstruction. There is no evidence of free air. No acute osseous abnormalit ies are present. Right upper quadrant cholecystectomy clips. Bilateral L3-L5 posterior fusion with transpedicular screws and interconnecting rods with associated hemilaminectomy changes. CONCLUSION: Stable bilateral renal stones. Dictated by: Jason Quan M.D. on 12/05/2016 at 11:38 Electronically approved by: Jason Quan M.D. on 12/05/2016 at 11:38 Dictated By: JASON QUAN MD 1138 Transcribed By: REUBEN on 12/05/16 1138 COPY TO: CHERELLE FINK MD
--- OUTSIDE RECORDS SUMMARY | 2018-04-30 05:15 | XMS REPORT ---
Author Organization Unknown Address [address] [place] [address] Phone [phone] Care Team Providers Care Supervisor [employer] Name Role Phone NAVEED TIJERINA MD ([facility] INTER[facility]ION[facility] PAIN SPECIALIST) 124 [phone] LEATHA MCKENNA MD 107 [phone] JERRY HALE MD 82 [phone] DONNA LEONE MD 111 [phone] Allergies Code Code System Name Reaction Severity Status Onset NKDA Medications Name Status Start Date Stop Date amoxicillin 500 mg capsule Completed 05/01/2016 Co Q-10 200 mg capsule Take 1 capsule every day by oral route. Active Not available Creon 90271 UNIT CAP:1 TAB THREE TIMES A DAY Completed 08/01/2016 Creon 24,000-76,000-120,000 unit capsule,delayed release Take 1 capsule 3 times a day by oral route for 34 days. Active Not available ergocalciferol (vitamin D2) 50,000 unit capsule Completed 12/18/2016 Fenortho 200 mg capsule Take 1 capsule 3 times a day by oral route for 25 days. Active Not available fentanyl 50 mcg/hr transdermal patch Completed 08/01/2016 fluocinonide 0.05 % topical cream not started rx yet Active Not available glimepiride 1 mg tablet Completed 08/01/2016 hydrocodone 10 mg-acetaminophen 325 mg tablet Active Not available lidocaine 5 % topical ointment Active Not available lidocaine 5 % topical patch Active Not available lisinopril 2.5 mg tablet Take 1 tablet by mouth every day Active Not available Lyrica 100 mg capsule Completed 11/17/2015 Lyrica 150 mg capsule Completed 05/31/2017 Lyrica 200 mg capsule Take 1 capsule 3 times a day by oral route for 30 days. Active Not available Lyrica 75 mg capsule Completed 11/17/2015 meloxicam 15 mg tablet Completed 05/31/2017 metformin 1,000 mg tablet Take 1 tablet twice a day by oral route. Active Not available morphine ER 100 mg tablet,extended release Active Not available morphine ER 30 mg tablet,extended release Completed 08/01/2016 morphine ER 60 mg tablet,extended release Completed 05/31/2017 omeprazole 40 mg capsule,delayed release Take 1 capsule every day by oral route as needed for 30 days. Active Not available One Touch Ultra Test Strips 1-2 times a day Completed 05/31/2017 OneTouch Delica Lancets 33 gauge Take 1 each twice a day by miscell. route. Active Not available OneTouch Ultra Test strips Active Not available rosuvastatin 20 mg tablet Active Not available rosuvastatin 40 mg tablet Take 1 tablet every day by oral route as directed for 90 days. Active Not available simvastatin 40 mg tablet Take 1 tablet every day by oral route in the evening. Completed 12/18/2016 Tradjenta 5 mg tablet Take 1 tablet every day by oral route as directed for 30 days. Active Not available tramadol 50 mg tablet Take 1 tablet 4 times a day by oral route as needed for 14 days. 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 Information not available Cholecystectomy Information not available Leg Surgery Procedure Notes: Left ORIF of Lower leg Information not available 11/17/[address] [phone] (Work [address]) 12/21/2015 LDCT, Chest, for Lung Cancer Screening [facility] [place] [address] [address] [facility] [address] [place], [place] [id number] (Work Place) 08/01/2016 CT, Chest, W/o Contrast [facility] [place] [address] [facility] [address] [place] [address] (Work Place) Lab Results Date Name Specimen Result Interpretation Description Value Range Status Address 12/18/2016 CMP, Serum or Plasma Alt 19 U/L 0-55 U/L [facility]: [address] Ast 16 U/L 5-34 U/L [facility]: [address] Low Bun 8.1 mg/dL 8.4-25.7 mg/dL [facility]: [address] Alk Phos 77 unit/L 40-150 unit/L [facility]: [address] High Glucose 194 mg/dL 70-99 mg/dL [facility]: [address] Low Albumin 3.4 g/dL 3.5-5.0 g/dL [facility]: [address] Creatinine 1.06 mg/dL 0.72-1.25 mg/dL [facility]: [address] eGFR Non- >60 mL/min/1.73m2 >60 mL/min/1.73m2 [facility]: [address] Total Bilirubin 0.4 mg/dL 0.2-1.2 mg/dL [facility]: [address] eGFR - >60 mL/min/1.73m2 >60 mL/min/1.73m2 [facility]: [address] Sodium 141 mEq/L 136-145 mEq/L [facility]: [address] Potassium 4.1 mEq/L 3.5-5.1 mEq/L [facility]: [address] Chloride 107 mmol/L 98-107 mmol/L [facility]: [address] Total Protein 7.4 g/dL 6.4-8.3 g/dL [facility]: [address] Calcium 9.6 mg/dL 8.8-10.0 mg/dL [facility]: [address] [place] [address], [place] Low Co2 20.3 mmol/L 23.0-31.0 mmol/L [facility]: [address] [address], [place] Anion Gap 14 calc [facility]: [address] [place] [address], [place] 12/18/2016 Lipid Panel, Serum Hdl 52 mg/dL 40-60 mg/dL [facility]: [address] [place] [address], [place] High Triglyceride 307 mg/dL 0-149 mg/dL [facility]: [address] [address], [place] VLDL Calc. 61 mg/dL [facility]: [address] [address], [place] cholesterol/HDL Ratio 3.5 mg/dL [facility]: [address] [place] [address], [place] non-HDL Cholesterol Calc. 128 mg/dL 0-160 mg/dL [facility]: [address] [address], [place] Cholesterol 180 mg/dL 0-199 mg/dL [facility]: [address] [address], [place] LDL Calc. 67 mg/dL 0-130 mg/dL [facility]: [address] [address], [place] 12/18/2016 HbA1C (Hemoglobin a1C), Blood High A1C W/eag 7.3 % 1.0-5.7 % [facility]: [address] [address], [place] Average Blood Glucose 163 mg/dL [facility]: [address] [address], [place] 08/01/2016 Vitamin D, 25-Hydroxy, Total, Serum No observation recorded. [facility]: [id number], [place] 08/01/2016 PSA, Serum or Plasma No observation recorded. [facility]: [id number], [place] 08/01/2016 TSH, Serum or Plasma No observation recorded. [facility]: [id number], [place] 08/01/2016 Lipid Panel, Serum No observation recorded. [facility]: [id number], [place] 08/01/2016 CMP, Serum or Plasma No observation recorded. [facility]: [id number], [place] 08/01/2016 Vitamin D, 25-Hydroxy, Total, Serum Low Vitamin D, 25-Hydroxy 22.7 NG/mL 30.0-100.0 NG/mL [facility]: [address] 08/01/2016 PSA, Serum or Plasma Prostate Specific Ag, Serum 0.6 NG/mL 0.0-4.0 NG/mL [facility]: [address] [place] [address] 08/01/2016 TSH, Serum or Plasma Tsh 1.910 uIU/mL 0.450-4.500 uIU/mL [facility]: [address] [place] [address], [place] 08/01/2016 Lipid Panel, Serum Cholesterol, Total 174 mg/dL 100-199 mg/dL [facility]: [address] Triglycerides 144 mg/dL 0-149 mg/dL [facility]: [address] [place] [address] HDL Cholesterol 64 mg/dL >39 mg/dL [facility]: [address] [place] [address] VLDL Cholesterol Zaheer 29 mg/dL 5-40 mg/dL [facility]: [address] LDL Cholesterol Calc 81 mg/dL 0-99 mg/dL [facility]: [address] 08/01/2016 CMP, Serum or Plasma High Glucose, Serum 133 mg/dL 65-99 mg/dL [facility]: [address] Bun 13 mg/dL 8-27 mg/dL [facility]: [address] Creatinine, Serum 0.97 mg/dL 0.76-1.27 mg/dL [facility]: [address] eGFR If Nonafricn AM 84 mL/min/1.73 >59 mL/min/1.73 [facility]: [address] eGFR If Africn AM 97 mL/min/1.73 >59 mL/min/1.73 [facility]: [address] [place], [place] [address]van[address] BUN/creatinine Ratio 13 10-24 [facility]: [address] Sodium, Serum 142 mmol/L 134-144 mmol/L [facility]: [address] Potassium, Serum 4.4 mmol/L 3.5-5.2 mmol/L [facility] [address] [facility] Chloride, Serum 104 mmol/L 96-106 mmol/L [facility]: [address] Carbon Dioxide, Total 20 mmol/L 18-29 mmol/L [facility]: [address] Calcium, Serum 9.1 mg/dL 8.6-10.2 mg/dL [facility]: [address] Protein, Total, Serum 7.1 g/dL 6.0-8.5 g/dL [facility]: [address] Albumin, Serum 4.0 g/dL 3.6-4.8 g/dL [facility]: [address] Globulin, Total 3.1 g/dL 1.5-4.5 g/dL [facility]: [address] A/g Ratio 1.3 1.2-2.2 [facility]: [address] Bilirubin, Total <0.2 mg/dL 0.0-1.2 mg/dL [facility]: [address] Alkaline Phosphatase, S 79 IU/L 39-117 IU/L [facility]: [address] Ast (Sgot) 13 IU/L 0-40 IU/L [facility]: [address] Alt (Sgpt) 14 IU/L 0-44 IU/L [facility] [address] [facility] 08/01/2016 CBC W/ Auto Diff Wbc 9.06 x10*3/L 2.90-10.50 x10*3/L [facility]: [address] [place] [address] Rbc 4.28 10*12/L 3.61-5.21 10*12/L [facility]: [address] [facility] Low Hemoglobin 12.20 g/dL 12.30-17.50 g/dL [facility]: [address] [place] Hematocrit 38.7 % 37.1-51.3 % [facility]: [address] [place] Mcv 90.4 fL 79.4-101.6 fL [facility]: [address] [place] Mch 28.5 pg 26.2-34.8 pg [facility]: [address] [place] Mchc 31.5 g/dL 30.2-35.6 g/dL [facility]: [address] [place] High RDW-SD 51.5 fL 35.8-49.8 fL [facility]: [address] [place] Platelet Count 321.0 k/uL 118.8-347.0 k/uL [facility] [address] [facility] Mpv 10.6 fL 8.4-13.4 fL [facility]: [address] [place] Neut% 61.5 % 39.1-76.5 % [facility]: [address] [place] Lymph% 25.2 % 13.8-46.8 % [facility]: [address] [place] Mon% 7.7 % 4.6-14.4 % [facility]: [address] [place] Eos% 5.0 % 0.8-7.3 % [facility] [address] [facility] Baso% 0.6 % 0.2-1.5 % [facility]: [address] [place] Neut# 5.6 x10*3/L 0.8-7.0 x10*3/L [facility]: [address] [place] Lymph# 2.3 x10*3/L 0.6-3.2 x10*3/L [facility] [address] [facility] Mon# 0.7 x10*3/L 0.2-1.0 x10*3/L [facility]: [address] Eos# 0.45 x10*3/L 0.04-0.51 x10*3/L [facility]: [address] Baso# 0.05 x10*3/L 0.01-0.09 x10*3/L [facility]: [address] 08/01/2016 HbA1C (Hemoglobin a1C), Blood High A1C W/eag 6.9 % 1.0-5.7 % [facility]: [address] Average Blood Glucose 151 mg/dL [facility]: [address] 04/20/2016 CMP, Serum or Plasma Alt 12 U/L 0-55 U/L [facility]: [address] Ast 16 U/L 5-34 U/L [facility]: [address] Low Bun 5 mg/dL 8-26 mg/dL [facility]: [address] Alk Phos 87 unit/L 40-150 unit/L [facility]: [address] High Glucose 104 mg/dL 70-99 mg/dL [facility]: [address] Albumin 3.5 g/dL 3.5-5.0 g/dL [facility]: [address] Creatinine 0.82 mg/dL 0.72-1.25 mg/dL [facility]: [address] eGFR Non- >60 mL/min/1.73m2 >60 mL/min/1.73m2 [facility]: [address] Total Bilirubin 0.3 mg/dL 0.2-1.2 mg/dL [facility]: [address] eGFR - >60 mL/min/1.73m2 >60 mL/min/1.73m2 [facility]: [address] Sodium 143 mEq/L 137-144 mEq/L [facility]: [address] Potassium 4.6 mEq/L 3.5-5.0 mEq/L [facility]: [address] Chloride 110 mmol/L 101-110 mmol/L [facility]: [address] Total Protein 6.9 g/dL 6.4-8.3 g/dL [facility]: [address] Calcium 9.2 mg/dL 8.4-10.2 mg/dL [facility]: [address] Co2 22.0 mmol/L 22.0-31.0 mmol/L [facility]: [address] Anion Gap 11 calc [facility]: [address] 04/20/2016 Lipid Panel, Serum Hdl 54 mg/dL 40-60 mg/dL [facility]: [address] Triglyceride 113 mg/dL 0-149 mg/dL [facility]: [address] VLDL Calc. 23 mg/dL [facility]: [address] cholesterol/HDL Ratio 2 mg/dL [facility]: [address] non-HDL Cholesterol Calc. 75 mg/dL 0-160 mg/dL [facility]: [address] Cholesterol 129 mg/dL 0-199 mg/dL [facility]: [address] LDL Calc. 52 mg/dL 0-130 mg/dL [facility]: [address] [address], [place] 04/20/2016 HbA1C (Hemoglobin a1C), Blood High A1C W/eag 6.5 % 1.0-5.7 % [facility]: [address] Average Blood Glucose 140 mg/dL [facility]: [address] 12/21/2015 Hepatitis C Virus RNA, Quant, PCR, Serum or Plasma Normal Hepatitis C Antibody non-reactive non-reactive [facility]: [address] Normal Signal to Cut-off 0.15 <1.00 [facility]: [address] 12/21/2015 Hepatitis B Surface Ab, Quantitative, Serum Low Hepatitis B Surface Ab Immunity, Qn <5 mIU/mL > or=10 mIU/mL [facility]: [address] 12/21/2015 CMP, Serum or Plasma Alt 15.0 U/L 0.0-55.0 U/L [facility]: [address] Ast 16.0 U/L 5.0-34.0 U/L [facility]: [address] Bun 11.0 mg/dL 8.0-26.0 mg/dL [facility]: [address] Alk Phos 93.0 unit/L 40.0-150.0 unit/L [facility]: [address] High Glucose 105.0 mg/dL 70.0-99.0 mg/dL [facility]: [address] Low Albumin 3.2 g/dL 3.5-5.0 g/dL [facility]: [address] Creatinine 0.9 mg/dL 0.7-1.3 mg/dL [facility]: [address] eGFR Non- >60 mL/min/1.73m2 >60.0 mL/min/1.73m2 [facility]: [address] Total Bilirubin 0.2 mg/dL 0.2-1.2 mg/dL [facility]: [address] eGFR - >60 mL/min/1.73m2 >60.0 mL/min/1.73m2 [facility]: [address] Sodium 144.0 mEq/L 137.0-144.0 mEq/L [facility]: [address] Potassium 3.9 mEq/L 3.5-5.0 mEq/L [facility]: [address] Chloride 106.0 mmol/L 101.0-110.0 mmol/L [facility]: [address] Total Protein 6.6 g/dL 6.4-8.3 g/dL [facility]: [address] Calcium 9.3 mg/dL 8.4-10.2 mg/dL [facility]: [address] Co2 25 mmol/L 22-31 mmol/L [facility]: [address] Anion Gap 13.0 calc [facility]: [address] 12/21/2015 Lipid Panel, Serum Low Hdl 39.0 mg/dL 40.0-60.0 mg/dL [facility]: [address] High Triglyceride 210.0 mg/dL 0.0-149.0 mg/dL [facility]: [address] VLDL Calc. 42.0 mg/dL [facility]: [address] cholesterol/HDL Ratio 3.7 mg/dL [facility]: [address] non-HDL Cholesterol Calc. 105.0 mg/dL 0.0-160.0 mg/dL [facility]: [address] Cholesterol 144.0 mg/dL 0.0-199.0 mg/dL [facility]: [address] LDL Calc. 63.0 mg/dL 0.0-130.0 mg/dL [facility]: [address] 12/21/2015 HbA1C (Hemoglobin a1C), Blood High A1C W/eag 6.9 % 1.0-5.7 % [facility]: [address] Average Blood Glucose 151.3 mg/dL [facility]: [address] Albumin:creatinine Ratio, Urine Type Urine Microlalbumin 80 mg/L [facility]: [address], [place] Type Urine Creatinine 200 mg/dL [facility]: [address], [place] Type A:C Ratio 30-300 mg/g (Abnormal) [facility]: [address], [place] Glucose, Fingerstick, Blood Blood Glucose: mg/dl 108 [facility]: [address], [place] Electrocardiogram Rate & Rhythm [facility]: [address], [place] Qrs [facility]: [address], [place] Interval [facility]: [address], [place] QRS Duration [facility]: [address], [place] QT Interval [facility]: [address], [place] Glucose, Fingerstick, Blood Blood Glucose: mg/dl 104 [facility]: [address], [place] Past Encounters 05/31/2017 Mixed Hyperlipidemia Due to Type 2 Diabetes Mellitus; Mixed Hyperlipidemia; Body Mass Index 20-24 - Normal Rosales Dorman MD: [address] [place] [phone], Ph. 12/18/2016 Mixed Hyperlipidemia; Type 2 Diabetes Mellitus without Complication; Low Back Pain; Requires Course of Hepatitis B Vaccination; Body Mass Index 20-24 - Normal Rosales Dorman MD: [address] [place] [phone], Ph. 08/16/2016 Vitamin D Deficiency; Anemia; Mixed Hyperlipidemia; Vaccination for Diphtheria, Pertussis, and Tetanus; Adult Health Examination Vicki Lemos MD: [place] [phone], Ph. 08/01/2016 Adult Health Examination; Screening for Malignant Neoplasm of Colon; Screening for Malignant Neoplasm of Prostate; Type 2 Diabetes Mellitus without Complication; Mixed Hyperlipidemia; Multiple Nodules of Lung; Tobacco User Vicki Lemos MD: [address] [place] [phone], Ph. 06/01/2016 Requires Course of Hepatitis B Vaccination Vicki Lemos MD: [address] [place] [phone], Ph. 05/01/2016 Type 2 Diabetes Mellitus without Complication; Mixed Hyperlipidemia; Multiple Nodules of Lung; Tobacco User; Adult Health Examination; Requires Course of Hepatitis B Vaccination Vicki Lemos MD: [address] [place] [phone], Ph. 04/20/2016 Type 2 Diabetes Mellitus without Complication; Mixed Hyperlipidemia Vicki Lemos MD: [address] [place] [phone], Ph. 02/17/2016 Multiple Nodules of Lung; Acute Sinusitis; Type 2 Diabetes Mellitus without Complication; Mixed Hyperlipidemia; Tobacco User; Kidney Stone; Adult Health Examination Vicki Lemos MD: [address] [place] [phone], Ph. 01/19/2016 Type 2 Diabetes Mellitus without Complication; Mixed Hyperlipidemia; Adult Health Examination; Viral Immunization; Tobacco User Vicki Lemos MD: [address] [place] [address] [phone], Ph. 12/21/2015 Type 2 Diabetes Mellitus without Complication; Mixed Hyperlipidemia; Carotid Bruit; Screening for Malignant Neoplasm of Colon; Adult Health Examination; Pneumococcal Vaccination; Tobacco User; Low Back Pain Vicki Lemos MD: [address] [place] [phone], Ph. 11/17/2015 Type 2 Diabetes Mellitus; Syncope Rosales Kenny Dorman MD: [address] [place] [phone], Ph. Social History Smoking Status Heavy Tobacco Smoker (1/2 PPD) Notes: 1/2 PACK EVERY DAY /PT IS NOT INTERESTED IN QUITTING Vaccine List Vaccine Type Hep B, adult 05/01/2016 mL mL pneumococcal polysaccharide PPV23 12/21/20150.5 mL Tdap 08/16/20160.5 mL zoster 01/19/20160.65 mL Plan of Care Reminders Provider Appointments None recorded. Lab None recorded. Referral None recorded. Procedures None recorded. Surgeries None recorded. Imaging None recorded. Vitals 05/31/2017 10:00AM Est Patient Height Weight BMI Blood Pressure 5 ft 9 in 167 lbs 24.7 kg/m2 126/60 mm[Hg] 12/18/2016 01:45PM Work In Same Day Height Weight BMI Blood Pressure 5 ft 9 in 160 lbs 23.6 kg/m2 140/72 mm[Hg] 08/16/2016 11:30AM Est Patient Height Weight BMI Blood Pressure 5 ft 9 in 152 lbs 22.4 kg/m2 118/60 mm[Hg] 08/01/2016 07:00AM Est Patient Height Weight BMI Blood Pressure 5 ft 9 in 154 lbs 22.7 kg/m2 124/66 mm[Hg] 05/01/2016 10:30AM Est Patient Height Weight BMI Blood Pressure 5 ft 9 in 158 lbs 23.3 kg/m2 100/60 mm[Hg] 02/17/2016 02:00PM Est Patient Height Weight BMI Blood Pressure 5 ft 9 in 167 lbs 24.7 kg/m2 131/65 mm[Hg] 01/19/2016 07:30AM Est Patient Height Weight BMI Blood Pressure 5 ft 9 in 166 lbs 24.5 kg/m2 130/70 mm[Hg] 12/21/2015 07:30AM 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
[2018-04-30] MEDS ORDERED: HEPARIN SOD (PORCINE) 1000 UNIT/ML 30ML ONE (05:53)
[2018-04-30] MEDS ORDERED: PROTAMINE SULFATE 10 MG/ML 5 ML VIAL ONE (05:53)
[2018-04-30] MEDS ORDERED: MUPIROCIN 2% OINT 22 GM TUBE ONE (05:53)
[2018-04-30] MEDS ORDERED: THROMBIN FOR SOLN 5,000 UNIT VIAL ONE (05:53)
[2018-04-30] MEDS ORDERED: LIDOCAINE HCL 1% 2 ML AMP ONE (05:53)
[2018-04-30] MEDS ORDERED: SODIUM CHLORIDE 0.9% 500ML 500 ML ONE (05:54)
[2018-04-30] MEDS ORDERED: HEPARIN SOD/SOD CHLORIDE 1,000 ML ONE (06:29)
[2018-04-30] MEDS ORDERED: CEFAZOLIN SOD 1 GM/NS 50ML 50 ML IV ONE ×3 (07:48→18:00)
[2018-04-30] MEDS ORDERED: HYDROMORPHONE 2MG/ML 2 MG/ML ML ONE (10:02)
[2018-04-30 10:16] LABS: BASOPHILS # (AUTO) 0.1 (0.0-0.1); BASOPHILS % 0.5 % (0.0-1.0); EOSINOPHILS # (AUTO) 0.3 (0.0-0.4); EOSINOPHILS % 2.4 % (0.0-6.0); HEMATOCRIT 32.6 % (38.2-49.6); HEMOGLOBIN 10.7 g/dL (14.0-18.0); LYMPHOCYTES # (AUTO) 1.1 (1.0-3.2); LYMPHOCYTES % 10.5 % (18.0-39.1); MEAN CORPUSCULAR HEMOGLOBIN 29.7 pg (28-32); MEAN CORPUSCULAR HGB CONC 32.8 g/dL (31-35); MEAN CORPUSCULAR VOLUME 90.6 fL (81-99); MONOCYTES # (AUTO) 0.4 (0.2-0.8); MONOCYTES % 3.8 % (4.4-11.3); NEUTROPHILS # (AUTO) 8.6 (2.1-6.9); NEUTROPHILS % 81.8 % (38.7-80.0); PLATELET COUNT 204 x10e3/uL (140-360); RED CELL DISTRIBUTION WIDTH 15.1 % (11.7-14.4)
--- OUTSIDE RECORDS SUMMARY | 2018-04-30 10:16 | XMS REPORT | Clinical Summary ---
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 Name Role Phone System, Provider Not In [...] lobe due to infectious organism (HCC) 02/09/2018 [facility] General Internal Medicine - Encounter 02/11/2018 02/09/2018 [...] Taken Vital Sign Reading 02/11/2018 10:53 AM [employer] Blood Pressure 149/66 02/11/2018 10:53 AM [employer] Pulse 54 02/11/2018 10:53 AM [employer] Temperature 36.4 C (97.5 F) 02/11/2018 10:53 AM [employer]ER Respiratory Rate 20 02/11/2018 10:53 AM [employer]ER Oxygen Saturation 97% - Inhaled Oxygen - Concentration 02/11/2018 6:00 AM [employer]FT [employer]ER Weight 69.4 kg (153 lb) 02/09/2018 10:23 AM [employer] Height 172.7 cm (5' 8") 02/11/2018 6:00 AM [employer] Body Mass Index 23.26 Plan of Treatment Health Maintenance Due Date Last Done Comments COLON CANCER SCREENING 2004 SHINGLES VACCINES (#1) 2004 INFLUENZA VACCINE 09/19/2017 Procedures Comments Procedure Name Priority Date/Time Associated Diagnosis POTASSIUM LEVEL Routine 02/11/2018 11:18 AM [employer] POC GLUCOSE Routine 02/11/2018 10:53 AM [employer]ER POC GLUCOSE Routine 02/11/2018 6:41 AM [employer]ER HEMOGLOBIN A1C Routine 02/11/2018 5:06 AM [employer]ER ESTIMATED GFR Routine 02/11/2018 5:06 AM [employer]ER BASIC METABOLIC PANEL Routine 02/11/2018 5:06 AM [employer] HC COMPLETE BLD COUNT Routine 02/11/2018 W/AUTO DIFF 5:06 AM [employer]ER LEGIONELLA URINARY Routine 02/10/2018 ANTIGEN 11:52 PM [employer] STREPTOCOCCUS PNEUMONIAE Routine 02/10/2018 URINARY ANTIGEN 11:52 PM [employer] POC GLUCOSE Routine 02/10/2018 8:57 PM [employer]ER POC GLUCOSE Routine 02/10/2018 3:42 PM [employer]ER POC GLUCOSE Routine 02/10/2018 11:06 AM [employer]ER POC GLUCOSE Routine 02/10/2018 6:40 AM [employer] ESTIMATED GFR Routine 02/10/2018 5:38 AM [employer] HC COMPLETE BLD COUNT Routine 02/10/2018 W/AUTO DIFF 5:38 AM [employer]ER HEMOGLOBIN A1C Routine 02/10/2018 5:38 AM [employer]ER LIPID PANEL Routine 02/10/2018 5:38 AM [employer]ER BASIC METABOLIC PANEL Routine 02/10/2018 5:38 AM [employer]ER TROPONIN Routine 02/09/2018 10:02 PM [employer]FT [employer]ER ECG 12-LEAD Routine 02/09/2018 9:53 PM [employer]FT [employer]ER POC GLUCOSE Routine 02/09/2018 8:34 PM [employer]FT [employer]ER LACTIC ACID LEVEL, SEPSIS Timed 02/09/2018 - NOW AND REPEAT 2X EVERY 4:29 PM [employer] 3 HOURS POC GLUCOSE Routine 02/09/2018 4:28 PM [employer]ER POC GLUCOSE Routine 02/09/2018 1:46 PM [employer]ER LACTIC ACID LEVEL, SEPSIS Timed 02/09/2018 - NOW AND REPEAT 2X EVERY 1:30 PM [employer]ER 3 HOURS CONSULT TO SEPSIS Routine 02/09/2018 Pneumonia of right middle RESPONSE TEAM 1:07 PM [employer] lobe due to infectious organism (HCC) CT ANGIOGRAM PE CHEST STAT 02/09/2018 12:31 PM [employer]FT [employer] XR CHEST 1 VW PORTABLE STAT 02/09/2018 11:19 AM [employer]FT [employer]ER ECG 12-LEAD STAT 02/09/2018 11:09 AM [employer]FT [employer]ER RESPIRATORY PATHOGEN Routine 02/09/2018 PANEL 11:02 AM [employer]FT [employer]ER INFLUENZA ANTIGEN TEST, Routine 02/09/2018 REFLEX NEGATIVE TO RPP 11:02 AM [employer]FT [employer]ER BLOOD CULTURE, AEROBIC & Routine 02/09/2018 ANAEROBIC 10:53 AM [employer]FT [employer]ER URINE DRUGS OF ABUSE STAT 02/09/2018 SCREEN 10:50 AM [employer]FT [employer]ER URINALYSIS SCREEN AND STAT 02/09/2018 MICROSCOPY, WITH REFLEX 10:50 AM AIRCRAFT [employer]ER TO CULTURE URINE CULTURE STAT 02/09/2018 10:50 AM [employer]FT [employer]ER GRAM STAIN STAT 02/09/2018 10:50 AM [employer]FT [employer]ER TROPONIN STAT 02/09/2018 10:35 AM [employer]FT [employer]ER BETA HYDROXYBUTYRATE Routine 02/09/2018 10:35 AM AIRCRAFT [employer]ORER VENOUS BLOOD GAS STAT 02/09/2018 10:35 AM [employer]CRAFT [employer]ER LACTIC ACID LEVEL, SEPSIS STAT 02/09/2018 - NOW AND REPEAT 2X EVERY 10:35 AM [employer]ER 3 HOURS ESTIMATED GFR STAT 02/09/2018 10:35 AM [employer]FT [employer]ER COMPREHENSIVE METABOLIC STAT 02/09/2018 PANEL 10:35 AM [employer]FT [employer]ER PROTHROMBIN TIME WITH INR STAT 02/09/2018 10:35 AM [employer]CRAFT [employer]ER PARTIAL THROMBOPLASTIN STAT 02/09/2018 TIME (PTT) 10:35 AM AIRCRAFT RESTORER HC COMPLETE BLD COUNT STAT 02/09/2018 W/AUTO DIFF 10:35 AM [employer]CRAFT [employer]ER BLOOD CULTURE, AEROBIC & Routine 02/09/2018 ANAEROBIC 10:35 AM [employer]FT [employer]ER ECG ED PRELIMINARY Routine 02/09/2018 INTERPRETATION 10:[address] STROKE BRAIN WO STAT 02/09/2018 CONTRAST 10:32 AM [employer]CRAFT [employer]ER after 04/29/2017 Results * Potassium level (02/11/2018 11:18 AM AIRCRAFT RESTORER) Potassium 3.8 3.5 - 5.0 mEq/L [facility] Specimen Plasma specimen Performing Organization Address City/[facility] Phone Number [facility] [place] [address] PATHOLOGY AND GENOMIC MEDICINE [address] * POC glucose (02/11/2018 10:53 AM [employer]CRAFT RESTORER) Only the most recent of 9 results within the time period is included. POC glucose 172 (H) 65 - 100 mg/dL [facility] Comment: [facility] Meter ID: [id number] Collections Representative: Natali Zhou Performing Organization Address [facility] [place] [address] PATHOLOGY AND GENOMIC MEDICINE [address] * Estimated GFR (02/11/2018 5:06 AM AIRCRAFT RESTORER) Only the most recent of 3 results within the time period is included. Estimated GFR >=90 mL/min/1.73 m2 [facility] Comment: [facility] CatergoryUnitsInte rpretation G1 >=90 Normal or high G2 60-89Mildly decreased [id number] Mildly to moderately decreased [id number] Moderately to severely decreased G4 15-29Severely decreased G5 <15Kidney failure The eGFR was calculated using the Chronic Kidney Disease Epidemiology Collaboration (CKD-EPI) equation. Interpretation is based on recommendations of the National Kidney Foundation-Kidney Disease Outcomes Quality Initiative (NKF-KDOQI) published in 2014. Specimen Plasma specimen Performing Organization Address City/State/Zipcode Phone Number [facility] DE[facility] OF [address] [place] [address] PATHOLOGY AND GENOMIC MEDICINE [facility] [address] [place], [place] [id number] [place] [address] * CBC with platelet and differential (02/11/2018 5:06 AM [employer]CRAFT [employer]ORER) Only the most recent of 3 results within the time period is included. WBC 11.0 4.2 - 11.0 k/uL [facility] RBC 3.30 (L) 4.04 - 5.86 m/uL [facility] HGB 10.0 (L) 13.0 - 17.3 g/dL [facility] HCT 30.4 (L) 34.0 - 45.0 % [facility] MCV 92.1 80.0 - 98.0 fL [facility] MCH 30.3 27.0 - 34.0 pg [facility] MCHC 32.9 31.5 - 36.5 g/dL [facility] RDW - SD 52.5 (H) 37.0 - 51.0 fL [facility] MPV 10.3 7.4 - 10.4 fL [facility] Platelet count 208 150 - 400 k/uL [facility] Nucleated RBC 0.00 /100 WBC [facility] Neutrophils 78.4 (H) 36.0 - 66.0 % [facility] Lymphocytes 12.6 (L) 24.0 - 44.0 % [facility] Monocytes 5.3 0.0 - 6.0 % [facility] Eosinophils 2.5 0.0 - 6.0 % [facility] Basophils 0.5 0.0 - 1.2 % [facility] Immature granulocytes 0.7 0.0 - 1.0 % [facility] Specimen Blood Performing Organization Address City/[facility]/Zipcode Phone Number [facility] [address] [facility]. [place] [phone] PATHOLOGY AND GENOMIC MEDICINE [address] * Hemoglobin A1c (02/11/2018 5:06 AM [employer]CRA[employer]ER) Only the most recent of 2 results within the time period is included. Hemoglobin A1C 6.6 (H) 4.0 - 6.0 % [facility] Comment: [facility] Less than 6% - Goal of therapy for Type II Diabetes Less than 7%-Goal of therapy for Type I Diabetes Less than 8%-Accepta ble control for Type I or Type II Diabetes Greater than 8%-Unacceptabl e control; action indicated. (ADA94) Specimen Blood Performing Organization Address City/[facility]code Phone Number [place] [phone] [place] [address] PATHOLOGY AND GENOMIC MEDICINE [address] * Basic metabolic panel (02/11/2018 5:06 AM [employer]CRA[employer]ER) Only the most recent of 2 results within the time period is included. Sodium 144 135 - 150 mEq/L [facility] Potassium 3.1 (L) 3.5 - 5.0 mEq/L [facility] Chloride 110 98 - 112 mEq/L [facility] CO2 20 (L) 24 - 31 mmol/L [facility] Anion gap 14@ANIO 7 - 15 mEq/L [facility] BUN 14 7 - 18 mg/dL [facility] Creatinine 0.80 0.70 - 1.20 mg/dL [facility] Glucose 78 65 - 100 mg/dL [facility] Calcium 8.9 8.8 - 10.2 mg/dL [facility] Specimen Plasma specimen Performing Organization Address City/[facility]/Zipcode Phone Number [facility] DEPARTMENT OF [address] [place] [phone] PATHOLOGY AND GENOMIC MEDICINE [facility] [address] * Streptococcus pneumoniae urinary antigen (02/10/2018 11:52 PM AIRCRAFT REST[employer]ER) Strep pneumo urinary Ag Negative for Streptococcus [facility] pneumoniae antigen. HOSPITAL Comment: Specimen Information Specimen Source: Urine Specimen Site: [place] Specimen Urine - [place] Performing Organization Address City/[facility] Hospitalcode Phone Number [facility] [place] [address] PATHOLOGY AND GENOMIC MEDICINE [address] * Legionella urinary antigen (02/10/2018 11:52 PM AIRCRAFT [employer]ER) Legionella urinary Negative for Legionella [facility] antigen serogroup 1 antigen. HOSPITAL Comment: Specimen Information Specimen Source: Urine Specimen Site: [place] Specimen Urine - [place] Performing Organization Address [facility]code Phone Number [facility] DEPARTMENT OF [address] [place] [address] PATHOLOGY AND GENOMIC MEDICINE [address] * Lipid panel (02/10/2018 5:38 AM [employer]CRAFT [employer]ER) Cholesterol 70 0 - 199 mg/dL [facility] Triglycerides 67 0 - 149 mg/dL [facility] HDL cholesterol 51 40 - 9,999 mg/dL [facility] LDL cholesterol 15Comment: Result obtained by 0 - 99 mg/dL [facility] direct LDL measurement [facility] Specimen Plasma specimen Performing Organization Address City/[facility]/Zipcode Phone Number [facility] DEPARTMENT OF [address] [place] [phone] PATHOLOGY AND GENOMIC MEDICINE [facility] [address] * Troponin (02/09/2018 10:02 PM [employer]CRAFT [employer]ER) Only the most recent of 2 results within the time period is included. Troponin <0.30 0.00 - 0.30 ng/mL [facility] Comment: [facility] 0.11 - 1.49 ng/mlMay indicate increased risk of acute coronary syndrome. >=1.5 ng/ml Consistent with acute myocardial infarction. The diagnostic value of a single normal or non-diagnostic result is questionable.Serial samples at 2-6 hour intervals are required to rule out acute myocardial injury. Specimen Plasma specimen Performing Organization Address [facility]code Phone Number [facility] DEPARTMENT OF [address] [place] [phone] PATHOLOGY AND GENOMIC MEDICINE [facility] [address] * ECG 12 lead (02/09/2018 9:53 PM AIRCRAFT [employer]ER) Only the most recent of 2 results within the time period is included. Ventricular rate 55 [facility] Atrial rate 55 [facility] NM interval 204 [facility] QRSD interval 94 [...] present- Narrative Performed At Performing Organization Address [facility] Phone Number [facility] [address] [place] [address] * Lactic acid level, SEPSIS - Now and repeat 2x every 3 hours (02/09/2018 4:29 PM [employer]CRAFT [employer]ER) Only the most recent of 3 results within the time period is included. Lactic acid 1.1 0.5 - 2.2 mmol/L [facility] Specimen Blood Performing Organization Address City/[facility]/Zipcode Phone Number [facility] DEPARTMENT OF [address] [place] [address] PATHOLOGY AND GENOMIC MEDICINE [facility] [address] * Sepsis Clinical Assessment (02/09/2018 1:07 PM AIRCRAFT RESTORER) Narrative Performed At Rene Karimi NP 02/09/20182:27 [...] does not worsen, snooze alerts until:02/10/2018 01:12 [employer] SIRS Criteria Altered mental status due to [...] CT Angiogram Pe Chest (02/09/2018 12:31 PM AIRCRAFT [employer]ORER) Narrative Performed At EXAMINATION: RADIANT CT ANGIOGRAM [...] field. No definite pulmonary embolus. Renal stones [facility]-[id number] Procedure Note Interface, Radiology Results [facility] - 02/09/2018 12:40 PM AIRCRAFT [employer]ER EXAMINATION: CT ANGIOGRAM PE CHEST CLINICAL HISTORY: [...] field. No definite pulmonary embolus. Renal stones [facility]-[id number] Performing Organization Address [facility] Phone Number [employer] [address] [place] [address] * XR Chest 1 Vw Portable (02/09/2018 11:19 AM AIRCRAFT RESTORER) Narrative Performed At EXAMINATION:XR CHEST 1 VW PORTABLE [facility] CLINICAL HISTORY:feveraltered mental status COMPARISON:None. IMPRESSION: There is a 3.2 cm ill-defined mass in the right lower lobe. Recommend chest CT with IV contrast for further evaluation. Left lung is clear. No pleural fluid or pneumothorax is seen. The heart size is normal. There is no acute skeletal finding. [id number] Procedure Note Interface, Radiology Results Incoming - 02/09/2018 11:26 AM [employer]CRAFT [employer]ORER EXAMINATION: XR CHEST 1 VW PORTABLE CLINICAL HISTORY: fever altered mental status COMPARISON: None. IMPRESSION: There is a 3.2 cm ill-defined mass in the right lower lobe. Recommend chest CT with IV contrast for further evaluation. Left lung is clear. No pleural fluid or pneumothorax is seen. The heart size is normal. There is no acute skeletal finding. [id number] Performing Organization Address [facility] Hospitalcoid Phone Number [facility] [address] [place] [address] * Respiratory pathogen panel (02/09/2018 11:02 AM AIRCRAFT [employer]ORER) Respiratory pathogen Negative for all pathogens [facility] panel tested: HOSPITAL Negative for Adenovirus Negative [...] Specimen Nasopharyngeal - Right Performing Organization Address City/[facility]/Zipcode Phone Number [facility] [place] [address] PATHOLOGY AND [facility] MEDICINE [address] * Influenza antigen test, reflex negative to RPP (02/09/2018 11:02 AM AIRCRAFT RESTORER) Influenza antigen Negative for Influenza A/B [facility] Comment: Specimen Information Specimen Source: Nasopharyngeal Specimen Site: Right Specimen Nasopharyngeal - Right Performing Organization Address City/State/Zipcode Phone Number [facility] DEPARTMENT OF [address] [place] [address] PATHOLOGY AND GENOMIC [address] * Blood culture, aerobic & anaerobic (02/09/2018 10:53 AM AIRCRAFT [employer]ORER) Only the most recent of 2 results within the time period is included. Blood culture isolate No growth after 5 days of [facility] incubation. HOSPITAL Comment: Specimen Information Specimen Source: Blood Specimen Site: right ac Specimen Blood Performing Organization Address City/[facility]/Zipcode Phone Number [facility] [place] [address] PATHOLOGY AND GENOMIC MEDICINE [address] * Urinalysis screen and microscopy, with reflex to culture (02/09/2018 10:50 AM AIRCRAFT RESTORER) Specimen site Catheterized [facility] Color, UA Yellow [facility] Appearance, UA Clear [facility] Specific gravity, UA 1.013 1.001 - 1.035 [facility] pH, UA 5.0 5.0 - 8.5 [facility] Protein, UA 1+ (A) Negative [facility] Glucose, UA 1+ (A) Negative [facility] Ketones, UA Negative Negative [facility] Bilirubin, UA Negative Negative [facility] Blood, UA Small (A) Negative [facility] Nitrite, UA Negative Negative [facility] Urobilinogen, UA Negative <2.0 [facility] Leukocyte esterase, UA Negative Negative [facility] Epithelial cells, UA Few /HPF [facility] WBC, UA 3 (H) 0 - 1 /HPF [facility] RBC, UA <1 0 - 5 /HPF [facility] Bacteria, UA Trace None seen [facility] Yeast, UA None seen [facility] Yeast with pseudohyphae, None seen [facility] Specimen Urine Performing Organization Address City/[facility]oid Phone Number [facility] DEPARTMENT OF [address] [facility] [place] [address] PATHOLOGY AND GENOMIC MEDICINE [address] * Urine drugs of abuse screen (02/09/2018 10:50 AM [employer]CRAFT [employer]ER) Amphetamine screen, urine Negative [facility] Barbiturate screen, urine Negative [facility] Benzodiazepine screen, Negative [facility] urine [facility] Cannabinoid screen, urine Negative [facility] Cocaine screen, urine Negative [facility] Methadone metabolite Negative [facility] ([facility]), urine [facility] Opiates screen, urine Positive (A) [facility] Phencyclidine screen, Negative [facility] urine [facility] Specimen Urine Performing Organization Address City/[facility]code Phone Number [facility] DEPARTMENT OF [address] [place] [address] PATHOLOGY AND GENOMIC MEDICINE [facility] [address] * Gram stain (02/09/2018 10:50 AM AIRCRAFT RESTORER) Gram stain result No WBC's or organisms seen. [facility] Comment: HOSPITAL Specimen Information Specimen Source: Urine Specimen Site: Catheterized Specimen Urine - Catheterized Performing Organization Address City/[facility]code Phone Number [facility] DEPARTMENT OF [address] [place] [address] PATHOLOGY AND GENOMIC MEDICINE [address] * Urine culture (02/09/2018 10:50 AM AIRCRAFT RESTORER) Urine culture isolate growth after 24 hours [facility] Comment: [facility]OSPITAL Specimen Information Specimen Source: Urine Specimen Site: Catheterized Specimen Urine - Catheterized Performing Organization Address [facility] Phone [facility] DEPARTMENT OF [address] [place] [address] PATHOLOGY AND GENOMIC MEDICINE [address] * Beta hydroxybutyrate (02/09/2018 10:35 AM AIRCRAFT [employer]ER) Beta hydroxybutyrate 0.08 0.02 - 0.27 mmol/L [facility] Specimen Blood Performing Organization Address [facility]code Phone Number [facility] DEPARTMENT OF [address] [facility] [place] [address] PATHOLOGY AND GENOMIC MEDICINE [address] [place] * Partial thromboplastin time, activated (02/09/2018 10:35 AM AIRCRAFT RESTORER) PTT 36.3 (H) 23.0 - 36.0 sec [facility] Comment: [facility] PTT therapeutic range for unfractionated heparin is 61.0-112.0 seconds which corresponds to Anti-Xa 0.3-0.7 U/ml. Note:Change in Panic Value The PTT Panic Value is changing from 110 sec. to 100 sec. due to new instrumentation and reagents. Correlation studies have been performed to validate this result. Specimen Blood Performing Organization Address [facility] Phone Number [facility] DEPARTMENT OF [address] [facility] [place] [phone] PATHOLOGY AND GENOMIC MEDICINE [address] * Prothrombin time with INR (02/09/2018 10:35 AM [employer]CRAFT RESTORER) Prothrombin time 13.5 11.5 - 14.5 sec [facility] INR 1.06 [facility] Comment: [facility] For patients on anticoagulant therapy, reference ranges below: Indication: INR Value Treatment of Venous Thrombosis, 2.0-3.0 pulmonary emboli, or prophylaxis of a venous thrombosis, or systemic emboli. High dose, high risk patients 3.0-4.5 with mechanical valves. NOTE:INR values over 3.0 are sometimes associated with gastrointestinal hemorrhage, especially values over 4.0. Specimen Blood Performing Organization Address City/State/Zipcode Phone Number [facility] OF [address] [facility] [place] [address] PATHOLOGY AND [facility] MEDICINE [address] * Venous blood gas (02/09/2018 10:35 AM AIRCRAFT RESTORER) Collections Representative TD [facility] Collection site LAC [facility] pH, venous 7.337 7.320 - 7.420 units [facility] pCO2, venous 42.1 (L) 45.0 - 51.0 mmHg [facility] pO2, venous 23.5 (L) 25.0 - 40.0 mmHg [facility] O2 saturation, venous 42.1 40.0 - 70.0 % [facility] Bicarbonate 22.5 21.0 - 28.0 mEq/L [facility] O2 content 7.2 VOL% [facility] FiO2, inspired O2% 21.0 % [facility] Carboxyhemoglobin 2.5 (H) 0.0 - 1.4 % [facility] Comment: [facility] Reference Ranges: Carboxyhemoglobin Non smoker: 0.0 - 2.0% Smoker: 2.1 - 5.0% Heavy smoker: 5.1 - 9% Methemoglobin 1.5 (H) 0.0 - 1.0 % [facility] Hemoglobin, blood gas 12.7 (L) 14.0 - 18.0 g/dL [facility] Specimen Blood Performing Organization Address City/State/Zipcode Phone Number [facility] DEPARTMENT OF [address] [place] [address] PATHOLOGY AND GENOMIC MEDICINE [facility] [address] [place] [place] [id number] [place] [address] * Comprehensive metabolic panel (02/09/2018 10:35 AM AIRCRAFT RESTORER) Sodium 138 135 - 150 mEq/L [facility] Potassium 3.1 (L) 3.5 - 5.0 mEq/L [facility] Chloride 104 98 - 112 mEq/L [facility] CO2 20 (L) 24 - 31 mmol/L [facility] Anion gap 14@ANIO 7 - 15 mEq/L [facility] BUN 10 7 - 18 mg/dL [facility] Creatinine 1.00 0.70 - 1.20 mg/dL [facility] Glucose 221 (H) 65 - 100 mg/dL [facility] Calcium 9.2 8.8 - 10.2 mg/dL [facility] Protein 6.8 6.3 - 8.3 g/dL [facility] Albumin 3.0 (L) 3.5 - 5.0 g/dL [facility] A/G ratio 0.8 0.7 - 3.8 [facility] Alkaline phosphatase 118 0 - 129 U/L [facility] AST 23 10 - 50 U/L [facility] ALT 26 5 - 50 U/L [facility] Total bilirubin 0.5 0.2 - 1.2 mg/dL [facility] Specimen Plasma specimen Performing Organization Address City/[facility]/Zipcode Phone Number [facility] DEPARTMENT OF [address] [place] [address] PATHOLOGY AND GENOMIC MEDICINE [facility] [address] [place], [place] [id number] [place] [address] * ECG ED Preliminary Interpretation - Not an Order (02/09/2018 10:34 AM AIRCRAFT RESTORER) Narrative Performed At Isaac Hernandez MD 02/09/20181:43 PM ECG ED Preliminary Interpretation - Not an Order Performed by: Isaac Hernandez MD Authorized by: Isaac Hernandez MD ECG reviewed by ED Physician in the absence of a private investigator surveillance: yes Previous ECG: Previous ECG:Unavailable Interpretation: Interpretation: normal Rate: ECG rate:98 ECG rate assessment: normal Rhythm: Rhythm: sinus rhythm Ectopy: Ectopy: none QRS: QRS axis:Normal QRS intervals:Normal Conduction: Conduction: abnormal Abnormal conduction: incomplete RBBB ST segments: ST segments:Normal T waves: T waves: normal * CT Stroke Brain Wo Contrast (02/09/2018 10:32 AM AIRCRAFT RESTORER) Narrative Performed At EXAMINATION:CT STROKE BRAIN WO [...] AM and acknowledged understanding of the findings. [facility]-[id number] Procedure Note [facility], Radiology Results Incoming - 02/09/2018 10:42 AM AIRCRAFT RESTORER EXAMINATION: CT STROKE BRAIN WO CONTRAST CT [...] AM and acknowledged understanding of the findings. [facility]-[id number] Performing Organization Address City/State/Zipcode Phone Number [facility] [address] [place] [address] after 04/29/2017 Insurance Payer Benefit Subscriber ID Type Phone Address Plan / Group BCBS BCBS xxxxxxxxxxxx PPO CHOICE PPO/FEDERA L EMPL PPO BCBS ANTHEM xxxxxxxxxxxx PPO [employer] ([place]) [place] [address] Advance Directives Patient has advance care planning documents on file. For more information, omero sanches contact: Armond Vega [address] [place] [address]
[2018-04-30 10:34] LABS: ALANINE AMINOTRANSFERASE 11 IU/L (0-55); ALBUMIN 2.9 g/dL (3.5-5.0); ALKALINE PHOSPHATASE 67 IU/L (40-150); ANION GAP 8.8 mmol/L (8-16); BLOOD UREA NITROGEN 11 mg/dL (7-26); BUN/CREATININE RATIO 13 (6-25); CALCIUM 8.1 mg/dL (8.4-10.2); CARBON DIOXIDE 19 mmol/L (22-29); CHLORIDE 115 mmol/L (98-107); CREATININE, SERUM 0.82 mg/dL (0.72-1.25); EST GLOMERULAR FILTRATION RATE > 60 ML/MIN (60-); GLUCOSE 143 mg/dL (74-118); POTASSIUM 3.8 mmol/L (3.5-5.1); SODIUM 139 mmol/L (136-145)
[2018-04-30] MEDS ORDERED: ATROPINE SULFATE 0.1 MG/ML 10ML SYR ONE (11:39)
[2018-04-30] MEDS ORDERED: ATROPINE SULFATE 0.1 MG/ML 10ML SYR IV ONE (11:45)
--- NOTE | 2018-04-30 11:58 | NUR ---
received patient to icu from pacu. pulse is 30s, bp is 90/40. dr rice notified of neew consult and also these vital signs. he orders atropine, and dopamine, atropine administered and pulse and bp come up. rounding now, says ok to hold off on dopamine and to not give any home bp meds for now.
[2018-04-30] MEDS ORDERED: DEXTROSE 50% SYRINGE 50 ML IV PRN (12:15)
[2018-04-30] MEDS: SODIUM CHLORIDE 0.9% 1000ML 1,000 ML IV SCH ×2 (12:15→19:30)
[2018-04-30] MEDS ORDERED: ONDANSETRON HCL 4 MG ORAL DISINTEGRATING TAB PO PRN (12:15)
[2018-04-30] MEDS ORDERED: MORPHINE SULFATE INJ 4 MG/ML INJ 1ML IV PRN ×2 (12:15→12:30)
[2018-04-30] MEDS ORDERED: LABETALOL HCL 5 MG/ML 20ML VIAL IV PRN (12:15)
[2018-04-30] MEDS ORDERED: MORPHINE SULFATE 2 MG/ML SYR 1ML IV PRN (12:15)
[2018-04-30] MEDS ORDERED: KETOROLAC TROMETHAMINE 30 MG/ML VIAL ONE (14:24)
[2018-04-30] MEDS ORDERED: DEXAMETHASONE SOD PHOS INJ 4 MG/ML VIAL ONE (14:24)
[2018-04-30] MEDS ORDERED: NEOSTIGMINE 5 MG/5ML SYR ONE (14:24)
[2018-04-30] MEDS ORDERED: ATROPINE SULFATE 1 MG/ML VIAL ONE (14:24)
[2018-04-30] MEDS ORDERED: LABETALOL HCL 5 MG/ML 20ML VIAL ONE (14:24)
[2018-04-30] MEDS ORDERED: ONDANSETRON HCL INJ 2MG/ML 2ML 2 MG/ML VIAL ONE (14:24)
[2018-04-30] MEDS ORDERED: SEVOFLURANE INHAL SOLN 250 ML PEN BTL ONE (14:24)
[2018-04-30] MEDS ORDERED: LIDOCAINE HCL 2% LOCAL INJ 5 ML SDV VIAL INJ ONE (14:24)
[2018-04-30] MEDS ORDERED: ACETAMINOPHEN 1000 MG/100 ML IV ONE (14:24)
[2018-04-30] MEDS ORDERED: PROPOFOL IV EMULSION 10 MG/ML 20 ML VIAL ONE (14:24)
[2018-04-30] MEDS ORDERED: EPHEDRINE SULFATE INJ 50 MG/10 ML SYR ONE (14:24)
[2018-04-30] MEDS ORDERED: ROCURONIUM BROMIDE 10 MG/ML 5ML VIAL ONE (14:24)
[2018-04-30] MEDS: HYDROCODONE/APAP 10MG-325MG TAB PO PRN (14:29)
[2018-04-30] MEDS ORDERED: FENTANYL CITRATE/PF 100MCG/2 ML INJ ONE (14:42)
[2018-04-30] MEDS ORDERED: MIDAZOLAM HCL 2 MG/2 ML VIAL ONE (14:42)
[2018-04-30] MEDS ORDERED: HYDROMORPHONE 2MG/ML 2 MG/ML ML IV NR (16:00)
[2018-04-30] MEDS ORDERED: ALBUTEROL SULF 0.083% NEB SOLN 3 ML NEB NEB NR (16:10)
[2018-04-30] MEDS ORDERED: LABETALOL HCL 20 MG/4 ML SYRINGE IV PRN (16:15)
[2018-04-30] MEDS: INSULIN REGULAR, HUMAN 100 UNIT/1 ML 3ML VIAL SQ SCH ×2 (16:30→21:34)
[2018-04-30] MEDS: METFORMIN HCL 500 MG TAB PO SCH (17:06)
[2018-04-30] MEDS ORDERED: CEFAZOLIN SOD 1 GM VIAL IV SCH ×2 (18:00)
[2018-04-30] MEDS: MORPHINE SULFATE 30 MG TAB ER PO SCH (18:03)
--- NOTE | 2018-04-30 19:00 | NUR ---
Report received. Assumed care. Assessment complete. See interventions. Drsg to left c/d/i. Art line to left radial with good wave form. On Room Air with sats 98-100%. IV NS @ 100ml/hr.
--- NOTE | 2018-04-30 19:32 | Consultation ---
DATE OF CONSULTATION: REASON FOR CONSULT: Postop followup. HISTORY OF PRESENT ILLNESS: Mr. Garland is a 62-year-old gentleman with past medical history as listed below, had severe left carotid stenosis. He underwent left carotid endarterectomy by Dr. Seaman, tolerated the procedure well. Postoperative in the ICU, the patient was hypotensive and bradycardic. Heart rate apparently transiently gone down to the 20s and 30s. He was given IV atropine and his heart rate went up into the 70s. Blood pressure was transiently in the 70s and now it has gone up to the 120s/60s. The patient has some discomfort in his surgical site. Otherwise, denies any chest pain, shortness of breath, or palpitations. No dizziness. REVIEW OF SYSTEMS: CONSTITUTIONAL: Has some fatigue and weakness. HEENT: No headache, blurring of vision, seizure, syncope. CARDIOVASCULAR: No chest pain, dyspnea, or orthopnea. RESPIRATORY: No cough, fever, or expectoration. GI: No abdominal pain, vomiting, or diarrhea. ALLERGIES: NO KNOWN DRUG ALLERGIES. MEDICATIONS: See list. PAST MEDICAL HISTORY: 1. History of diabetes mellitus. 2. History of neuropathy. 3. History of hyperlipidemia. 4. History of bradycardia. PAST SURGICAL HISTORY: History of leg surgery, history of cholecystectomy, history of back surgery, history of cardiac catheterization. SOCIAL HISTORY: Does not smoke or drink. FAMILY HISTORY: Noncontributory. PHYSICAL EXAMINATION: GENERAL: Moderately built and nourished gentleman, awake, not in any obvious distress. VITAL SIGNS: Heart rate is 71, blood pressure 127/61, respiratory rate is 18. HEENT: Atraumatic. NECK: Left side of his neck is dressed. CARDIOVASCULAR: First and second heart sounds heard. CHEST: Decreased air entry at the bases. No adventitious sounds appreciated. ABDOMEN: Soft, nontender. EXTREMITIES: No edema. IMPRESSION: 1. Status post left carotid endarterectomy. 2. History of diabetes mellitus. 3. Bradycardia with history of bradycardia. 4. Transient hypotension. 5. Hyperlipidemia. PLAN: 1. The patient's heart rate was transiently in the 20s and 30s, was given atropine and his heart rate has gone up into the 70s. His blood pressure is also doing well. 2. Hold off any antihypertensives or AV blocking agents. 3. Continue with aspirin and statins. 4. Get EKG. 5. Further cardiac workup depending on clinical course. 6. I discussed my impression and plan of management with the patient and family. As always, I appreciate and thank you very much for referral. MD DAX Lees/JAMES /[id number]
[2018-04-30] MEDS ORDERED: SIMVASTATIN 40 MG TAB PO SCH (21:00)
[2018-04-30] MEDS ORDERED: SIMVASTATIN 20 MG TAB PO SCH (21:00)
[2018-04-30] MEDS: PREGABALIN 75 MG CAP PO SCH (21:28)
[2018-04-30] MEDS: MORPHINE SULFATE INJ 4 MG/ML INJ 1ML IV PRN (21:30)
--- NOTE | 2018-04-30 21:30 | NUR ---
Medicated for c/o back pain.
[2018-05-01] VITALS (17 sets, daily range): BP systolic 92–125; BP diastolic 33–88
--- NOTE | 2018-05-01 00:13 | Consultation ---
DATE OF CONSULTATION: Pulmonary Critical Care Consultation CHIEF COMPLAINT: Chronic pancreatitis and recent carotid endarterectomy. HISTORY OF PRESENT ILLNESS: The patient is a 62-year-old man. He has a history of chronic pancreatitis and diabetes. He had a prior Cardiology evaluation that showed severe left carotid stenosis. He came in for an elective carotid endarterectomy. He tolerated the procedure well. A shunt was used and a Dacron patch was placed. There was no complications and minimal blood loss. Postoperatively in the recovery room, he had some bradycardia that required atropine. He also had low blood pressure that improved with atropine and fluids. He is now in the intensive care unit and notes some pain along the incisional site. He does not have a headache. He does not describe any focal neurological complaints. PAST SURGICAL HISTORY: 1. Status post lumbar discectomy with postoperative wound infection in 2012. 2. Status post cholecystectomy. PAST MEDICAL HISTORY: 1. Diabetes. 2. Chronic pancreatitis, for which he takes Creon daily. 3. Chronic pain, for which he takes MS Contin. 4. Gastroesophageal reflux. SOCIAL HISTORY: The patient was a prior smoker. He is not a drinker. FAMILY HISTORY: Family history is noncontributory. ALLERGIES: THE PATIENT HAS NO KNOWN DRUG ALLERGIES. REVIEW OF SYSTEMS: There is no fever. He has no headache. He does have some incisional pain. He has no difficulty breathing. He has no chest pain. There is no nausea or vomiting. He has no abdominal pain. There is no leg swelling. There are no focal neurological complaints. PHYSICAL EXAMINATION: VITAL SIGNS: The patient is afebrile. The blood pressure is 111/47 and the pulse is 53. Saturation is 99%. HEENT: Shows no facial swelling or erythema. Nasal mucosa is normal. There is an incisional site on the left side that is bandaged. CARDIAC: Reveals regular rate and rhythm with normal S1 and S2. LUNGS: Auscultation of lungs reveals clear breath sounds bilaterally. There is no wheezing. ABDOMEN: Soft, nontender. There is no rebound or guarding. EXTREMITIES: Shows no leg edema or calf tenderness. There is no cyanosis or clubbing. SKIN: Shows no rashes. NEUROLOGICAL: Shows no focal abnormalities. LABORATORY DATA: The white blood cell count is 10.5 and hemoglobin is 10.7. The platelet count is 204. The HBO-si-emcqrigrre ratio is normal. The other electrolytes are within normal limits. IMPRESSION: 1. Transient bradycardia and hypotension following surgery. 2. Recent carotid endarterectomy. 3. Chronic pancreatitis. 4. Diabetes. 5. Chronic pain syndrome. PLAN: 1. Continue to monitor heart rate and give atropine or dopamine if necessary. 2. Cardiology evaluation. 3. Pain control. 4. Monitor neurological status. 5. Continue Creon. MD OTF Taylor/JAMES /[id number]
[2018-05-01] MEDS: HYDROCODONE/APAP 10MG-325MG TAB PO PRN (02:40)
--- NOTE | 2018-05-01 02:40 | NUR ---
Awake sitting on side of bed. c/o neck and back pain. Medicated with [facility] per request. Ice pack to neck.
[2018-05-01 05:12] LABS: BASOPHILS % 0.2 % (0.0-1.0); EOSINOPHILS % 0.3 % (0.0-6.0); HEMATOCRIT 28.5 % (38.2-49.6); HEMOGLOBIN 9.3 g/dL (14.0-18.0); LYMPHOCYTES % 17.9 % (18.0-39.1); MEAN CORPUSCULAR HEMOGLOBIN 29.2 pg (28-32); MEAN CORPUSCULAR HGB CONC 32.6 g/dL (31-35); MEAN CORPUSCULAR VOLUME 89.6 fL (81-99); MONOCYTES # (AUTO) 0.9 (0.2-0.8); MONOCYTES % 8.3 % (4.4-11.3); NEUTROPHILS % 72.9 % (38.7-80.0); PLATELET COUNT 192 x10e3/uL (140-360); RED BLOOD COUNT 3.18 x10e6/uL (4.3-5.7); RED CELL DISTRIBUTION WIDTH 15.6 % (11.7-14.4)
[2018-05-01 05:31] LABS: ANION GAP 10.5 mmol/L (8-16); BLOOD UREA NITROGEN 11 mg/dL (7-26); BUN/CREATININE RATIO 14 (6-25); CALCIUM 7.8 mg/dL (8.4-10.2); CARBON DIOXIDE 18 mmol/L (22-29); CHLORIDE 115 mmol/L (98-107); CREATININE, SERUM 0.81 mg/dL (0.72-1.25); EST GLOMERULAR FILTRATION RATE > 60 ML/MIN (60-); GLUCOSE 107 mg/dL (74-118); POTASSIUM 3.5 mmol/L (3.5-5.1); SODIUM 140 mmol/L (136-145)
[2018-05-01] MEDS: INSULIN REGULAR, HUMAN 100 UNIT/1 ML 3ML VIAL SQ SCH ×2 (07:18→11:30)
[2018-05-01] MEDS: GLIMEPIRIDE 2 MG TAB PO SCH ×2 (07:30→08:22)
[2018-05-01] MEDS: MORPHINE SULFATE 30 MG TAB ER PO SCH ×2 (07:44→08:20)
[2018-05-01] MEDS: METFORMIN HCL 500 MG TAB PO SCH ×3 (08:00→11:39)
--- NOTE | 2018-05-01 08:00 | NUR ---
discontinued left radial arterial line. held pressure x 10 min and applied pressure dressing.
[2018-05-01] MEDS ORDERED: POTASSIUM CHLORIDE 20 MEQ TAB CR PO ONE (08:15)
[2018-05-01] MEDS: SODIUM CHLORIDE 0.9% 1000ML 1,000 ML IV SCH (08:15)
[2018-05-01] MEDS: PREGABALIN 75 MG CAP PO SCH (08:33)
[2018-05-01] MEDS ORDERED: LISINOPRIL 2.5 MG TAB PO SCH (09:00)
[2018-05-01] MEDS ORDERED: ENOXAPARIN SOD INJ 40 MG/0.4 ML SYR SC SCH ×2 (09:00→17:00)
[2018-05-01] MEDS ORDERED: ASPIRIN 81 MG ENTERIC COATED PO SCH (09:00)
--- NOTE | 2018-05-01 09:30 | NUR ---
patient ambulating in room on portable continuous monitoring. tolerating well.
[2018-05-01] MEDS: MORPHINE SULFATE INJ 4 MG/ML INJ 1ML IV PRN (10:43)
[2018-05-01] MEDS ORDERED: TYLENOL WITH C1 EACH PO (10:58)
[2018-05-01] MEDS ORDERED: MUPIROCIN22 GM TOP (10:58)
--- NOTE | 2018-05-01 11:15 | Progress Note ---
DATE: Pulmonary Critical Care Progress Note SUBJECTIVE: The patient has less pain this morning. His heart rate is in the 55-65 range. He has been up and walking. PHYSICAL EXAMINATION: VITAL SIGNS: The blood pressure is 119/57 and the heart rate is 63. The saturation is 99% and the respiratory rate is 19. HEENT: Shows no facial swelling or erythema. NECK: The left neck is bandaged. CARDIAC: Reveals a regular rate and rhythm with a normal S1 and S2. There are no murmurs or rubs heard. LUNGS: Auscultation of lungs reveals clear breath sounds bilaterally. There is no wheezing. ABDOMEN: Soft and nontender. There is no rebound or guarding. EXTREMITIES: Show no leg edema or calf tenderness. There is no cyanosis or clubbing. SKIN: Shows no rashes. LABORATORY DATA: The sodium is 140, the carbon dioxide is 18, the chloride is 115, the BUN to creatinine ratio is normal. The CBC is significant for hemoglobin of 9.3. IMPRESSION: 1. Bradycardia. 2. Hyperchloremic acidosis. 3. Chronic pancreatitis. 4. Diabetes. 5. Chronic pain syndrome. PLAN: 1. Stop normal saline infusion because of acidosis. 2. Continue to monitor heart rate. 3. Pain control. 4. Monitor blood counts. Adrian Alvarado MD [facility]/JAMES /[id number]
--- NOTE | 2018-05-01 16:10 | NUR ---
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 CM/SW role and care transitions discussed. Anticipated discharge plan discussed along with duration of care. CM/SW discussed patients right to make decisions in care. CM/SW work hours given. Patient lives: Admit/Transfer: SCHEDULED ADMIT Hospital/ER visits since last admit:0 POA/Emergency contact: MARGO BROWN [phone] Current/Previous Home Health: NONE PCP/Follow-up Care: DERECK ROSAS Current/Previous DME: NONE Medications (referring to index hospitalization or the first time you were in the hospital) a. Were changes made in your medications when you were in the hospital on [date of index hospitalization]? N/A Note: If no or not sure, please skip to question d b. Did you understand the changes? Yes No Explain: c. Were you able to obtain your new medications right away? Yes No n/a SNF only Explain: d. Were you able to take your medications like the doctor wanted you to? TAKING MEDS PRESCRIBED BY PCP e. Did the hospital give you an accurate, easy to understand list of medications when you left? 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 Name and number was also written on the patients whiteboard. Patient verbalized understanding of discussion. CM will follow-up with ongoing discharge and transition of care needs.
--- NOTE | 2018-05-03 13:55 | Operative Report ---
DATE OF PROCEDURE: 04/30/2018 SURGEON: Jeffry Seaman MD LAMP REPLACER: Román. PREOPERATIVE DIAGNOSIS: Severe left carotid stenosis. POSTOPERATIVE DIAGNOSIS: Severe left carotid stenosis. TITLE OF OPERATION: Left carotid endarterectomy. DESCRIPTION OF OPERATION: After the satisfactory accomplishment of general anesthesia, the patient's left neck was prepped and draped in sterile fashion. A standard left carotid incision was made along the anterior border of the sternomastoid muscle. The incision was carried down through the subcutaneous tissues and fascia to expose the left common carotid artery. The vessel was dissected free from the surrounding tissues and looped with a vessel loop. The dissection was carried distally to expose the internal carotid artery and the external carotid artery and its branches. Care was taken to identify and preserve all nerve structures in the region. Systemic heparin was given through a central vein canula for the purposes of anticoagulation. The common, external, and internal carotid arteries were briefly crossclamped. A long incision was made in the common carotid artery and carried distally through the bifurcation and well up into the internal carotid artery. A severely obstructing atherosclerotic plaque was quickly identified. The plaque was removed using standard endarterectomy techniques. Following this, an indwelling shunt was placed in the common carotid artery proximally and the internal carotid artery distally thereby re-establishing blood flow to the left side of the brain for the remainder of the case. The surface of the vessel was then smoothed and all loose debris was carefully removed. Heparinized saline flushes were routinely employed. A previously constructed Dacron patch was brought into the operative field and used to close the arteriotomy site. Running 7-0 Prolene was used to for this patch closure. Prior to completing the closure, the shunt was removed and the vessel was flushed free from all air and debris. Once the sutures were tied, excellent pulses were located within the patch area and beyond. Protamine was given to counteract the effects of the heparin. All bleeding points were cauterized, ligated, or oversewn. The wound was again thoroughly irrigated with antibiotic solution and closed in layers with interrupted 2-0 Vicryl for the deep tissues and Monocryl subcuticular stitches for the skin. The patient tolerated the procedure well and was returned to the Intensive Care Unit in good condition. MD JE Montes/JAMES /[id number]
== END 2018-05-01 15:57 | disposition home or self-care (01) | DRG 38 ==
LOC: OR 05:10 → PACU V 09:58 → ICU 11:33
PROVIDERS: ADMIT Thoracic Surgery (Cardiothoracic Vascular Surgery); ATTEND Thoracic Surgery (Cardiothoracic Vascular Surgery)
PROC: 03UJ0JZ Supplement Left Common Carotid Artery with Synthetic Substitute, Open Approach (ICD-10-PCS; 2018-04-30)
PROC: 03CJ0ZZ Extirpation of Matter from Left Common Carotid Artery, Open Approach (ICD-10-PCS; principal; 2018-04-30 07:45)
DX: I65.22 Occlusion and stenosis of left carotid artery (principal); K86.1 Other chronic pancreatitis; I97.89 Other postprocedural complications and disorders of the circulatory system, not elsewhere classified; E87.2 Acidosis; I10 Essential (primary) hypertension; E11.9 Type 2 diabetes mellitus without complications; G89.29 Other chronic pain; K21.9 Gastro-esophageal reflux disease without esophagitis; R00.1 Bradycardia, unspecified; G89.4 Chronic pain syndrome; I95.81 Postprocedural hypotension
CPT/HCPCS: 36415; 71046; 80048; 80053; 82948; 85025; 85610; 85730; 86850; 86900; 86920; 88304; 88311; 93005; 96372; C1768; J0461; J0690; J1100; J1644; J1885; J2001; J2250; J2270; J2405; J2720; J7030; J7040

== ENCOUNTER → 2018-09-30 | Outpatient (CLI) | payer BC ==
[~2018-09-30] MED LIST changes: +MUPIROCIN22 GM TOP; +TYLENOL WITH C1 EACH PO
--- NOTE | 2018-09-30 13:19 | Diagnostic Imaging Report ---
Exam: KUB - 2 views Clinical History: Renal calculi Comparison: KUB of 11/10/2015 Findings: Left lower pole renal calculi measure 5 mm and 3 mm. Renal calculi likely overlying the right lower pole measure up to 4 mm. Status post cholecystectomy. Levoconvex curvature of the lumbar spine and severe lumbar spine degenerative changes. Postoperative findings of posterior lower lumbar spinal fusion. Nonobstructive bowel gas pattern. No free air. Moderate degenerative changes of both hip joints. No acute osseous injury. Impression: Bilateral renal calculi measuring up to 5 mm on the left and 4 mm on the right. Signed by: Landry Fisher MD on 09/30/2018 1:16 PM
== END ==
LOC: RAD 11:27
PROVIDERS: ATTEND Urology
DX: N20.0 Calculus of kidney (principal)
CPT/HCPCS: 74018